=== PATIENT | male | born 1980 ===

== ENCOUNTER 2018-05-25 17:32 | Emergency (ER) | payer OTHER ==
[2018-05-25 17:41] VITALS: BMI 38.4
[2018-05-25] MEDS ORDERED: Albuterol-Ipratrop 3 mg / 0.5 (3 ml) UD IH STA (17:48)
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
[2018-05-25] MEDS ORDERED: Albuterol 0.083% Inhal Sol (2.5 mg/3 mL) UD INH STA (19:37)
[2018-05-25 19:44] VITALS: BP 115/88; PULSE 104; RESP 18; TEMP 99; O2SAT 100
--- NOTE | 2018-05-26 09:07 | RAD ---
Date of service: 05/25/2018 HISTORY: wheezing COMPARISON: Portable chest 06/24/2016. FINDINGS: LUNGS: No active pulmonary disease. Improved inspiratory volumes. PLEURA: No significant pleural effusion identified, no pneumothorax apparent. CARDIOVASCULAR: No aortic atherosclerotic calcification present. Normal cardiac size. No pulmonary vascular congestion. OSSEOUS STRUCTURES: No significant abnormalities. VISUALIZED UPPER ABDOMEN: Normal. OTHER FINDINGS: None. IMPRESSION: No interval acute cardiopulmonary disease appreciated.
== END 2018-05-25 19:50 | disposition home or self-care (01) ==
LOC: ED 17:32
DX: J40 Bronchitis, not specified as acute or chronic (principal)
CPT/HCPCS: 71045; 87804; 96374; 99282; J2930

== ENCOUNTER 2018-05-29 22:07 | Inpatient (IN) | payer OTHER ==
[2018-05-29] MEDS ORDERED: DiphenhydrAMINE 50 mg/ml Inj IVP STA (22:37)
[2018-05-29] MEDS: Albuterol-Ipratrop 3 mg / 0.5 (3 ml) UD IH SCH ×3 (22:40→23:17)
--- NOTE | 2018-05-29 22:41 | ED PDOC ---
Arrival/HPI - General Chief Complaint: Respiratory Distress Time Seen by Provider: 05/29/18 22:15 Historian: Patient - History of Present Illness Narrative History of Present Illness (Text): 05/29/18 22:38 37 y/o male, pmh including asthma, chronic smoker, hypox 88% Room air, been having coughing/wheezing/shortness of breath for the past 4-5 days with epigastric discomfort. Pt. stated that he has nasal congestion/cough/wheezi ng/sob/fatigue for the past 4 days with subjective, stated that he received zithromax/prednisone/albuterol with limited relief, no recent traveling, no night sweat, no rash, stated that he has epigastric pain as well which he had abd sonogram show fatty liver with no acute findings, no other medical or psychological complaints. Past Medical History - Provider Review Nursing Documentation Reviewed: Yes - Infectious Disease Hx of Infectious Diseases: None - Tetanus Immunization Tetanus Immunization: Up to Date - Cardiac Hx Cardiac Disorders: No - Pulmonary Hx Asthma: Yes - Neurological Hx Neurological Disorder: No - HEENT Hx HEENT Disorder: No - Renal Hx Renal Disorder: No - Endocrine/Metabolic Hx Endocrine Disorders: No - Hematological/Oncological Hx Blood Disorders: No - Integumentary Hx Dermatological Disorder: No - Musculoskeletal/Rheumatological Hx Musculoskeletal Disorders: No - Gastrointestinal Hx Gastrointestinal Disorders: No - Genitourinary/Gynecological Hx Genitourinary Disorders: No - Psychiatric Hx Depression: Yes Hx Substance Use: No - Past Surgical History Past Surgical History: No Previous - Surgical History Other/Comment: right rotator cuff. right 5th toe. - Anesthesia Hx Anesthesia: No Hx Anesthesia Reactions: No Hx Malignant Hyperthermia: No - Suicidal Assessment Feels Threatened In Home Enviroment: No Family/Social History - Physician Review Nursing Documentation Reviewed: Yes Family/Social History: Unknown Family HX Smoking Status: Current Some Days Smoker Hx Alcohol Use: Yes Hx Substance Use: No Substance used: coccaine & xanax Hx Substance Use Treatment: No Allergies/Home Meds Allergies/Adverse Reactions: Allergies shellfish derived Allergy (Mild, Verified 05/29/18 22:18) RASH Home Medications: Home Meds Medication Instructions Recorded Confirmed Albuterol Sulfate [Proair Hfa] 0.09 mg IH PRN PRN 10/24/17 05/29/18 Review of Systems - Review of Systems Constitutional: Fatigue, Fevers Eyes: absent: Vision Changes ENT: Rhinorrhea. absent: Hearing Changes Respiratory: SOB, Cough, Sputum, Wheezing Cardiovascular: absent: Chest Pain Gastrointestinal: absent: Abdominal Pain, Nausea, Vomiting Skin: absent: Rash, Pruritis Neurological: absent: Headache, Dizziness Psychiatric: absent: Anxiety, Depression, Suicidal Ideation Physical Exam Vital Signs Reviewed: Yes Vital Signs Temp Pulse Resp BP Pulse Ox 05/29/18 22:20 99.3 F 115 H 20 126/73 89 L Temperature: Afebrile Blood Pressure: Normal Pulse: Regular Respiratory Rate: Tachypneic Appearance: Positive for: Well-Appearing, Uncomfortable Pain Distress: None Mental Status: Positive for: Alert and Oriented X 3 - Systems Exam Head: Present: Atraumatic, Normocephalic Pupils: Present: PERRL Extroacular Muscles: Present: EOMI Conjunctiva: Present: Normal Mouth: Present: Moist Mucous Membranes Nose (External): Present: Atraumatic. No: Abrasion, Contusion, Laceration Nose (Internal): Present: Normal Inspection, No Active Bleeding, Rhinorrhea. No: Septal Deviation, Septal Hematoma, Epistaxis Neck: Present: Normal Range of Motion Respiratory/Chest: Present: Wheezes, Decreased Breath Sounds, Rales, Rhonchi, Tachypneic. No: Respiratory Distress, Accessory Muscle Use, Retracting, Tender to Palpation Cardiovascular: Present: Regular Rate and Rhythm, Normal S1, S2. No: Murmurs Abdomen: Present: Tenderness (epigastric), Normal Bowel Sounds. No: Distention, Peritoneal Signs, Rebound, Guarding Back: Present: Normal Inspection. No: CVA Tenderness, Midline Tenderness, Paraspinal Tenderness Upper Extremity: Present: Normal Inspection. No: Cyanosis, Edema Lower Extremity: Present: Normal Inspection. No: Edema Neurological: Present: GCS=15, CN II-XII Intact, Speech Normal, Motor Func Grossly Intact, Gait Normal, Memory Normal Skin: Present: Warm, Dry, Normal Color. No: Rashes Lymphatic: No: Cervical Adenopathy Psychiatric: Present: Alert, Oriented x 3, Normal Insight, Normal Concentration Medical Decision Making ED Course and Treatment: 05/29/18 22:44 -labs -CT -IV solumedrol/benadryl/pepcid/duoneb/toradol/codeine -Observe and reassess 05/29/18 23:21 -ABG: Ph 7.68, Co2 17, HCO3 20.1, Lactic acid 3.1 -Resiratory alkalosis with compensation, blood cultures ordered 05/29/18 23:23 -On campus monitor, he is tachy 120s with RR over 20 with lactic acid over 3.1 with suspicious of infection with subjective fever at home, rocephine and azithromycin ordered. 05/29/18 23:37 -Respiratory therapist sustained needle stick by the patient while drawing his blood, pt. agreed to have his blood draw for hepatitis panel and HIV. 05/29/18 23:46 -Pt. is still having wheezing/rhonchis/sob, CTA proceed and IV magnesium 2gm ordered. -Abd pain resolved with pepcid. 05/30/18 01:27 -EKG ordered. -CTA chest ordered and pending result. -Rapid flu is negative -ABG: Ph 7.68, Co2 17, HCO3 20.1, Lactic acid 3.1 -Labs are non-significant -Mg 1.7 -Lipase is negative -BNP show no acute findings -Trop show no acute findings as 1st set -TSH and T4 with normal limit -Dimer within normal limit, clinical suspicious is moderate to high for PE, CTA ordered -HIV is negative -UA ordered and pending results -UDS ordered and pending results -Pt. is hypoxic, tried outpatient treatment and fail, will need inpatient admis ele. 05/30/18 01:34 -I spoke to the medical sales representative and Dr. Champion, discussed about the case/labs/radiology results, agreed to admit this patient for monitoring. 05/30/18 04:11 -CTA: No demonstrated pulmonary embolism or arterial dissection. Nodular groundglass densities of the lower lobes, probably multifocal bronchopneumonia. Pending official [facility] radiology interpretation, already started the patient on rocephine/azithromycin 05/30/18 17:17 - Critical Care Critical Care Minutes: 45 minutes Critical Care Time: Unstable Narrative Critical Care (Text): 05/29/18 23:25 Tachycardia/tachypnea/lactic acid elevated, suspicious signs of infection, asthma require 3 duonebs and solumedrol, code sepsis. IV magnesium 2gm ordered. - RAD Interpretation Radiology Orders: 05/29/18 22:37 CHEST PORTABLE [RAD] Stat Chest xray: . EXAM: CR Chest, 1 View. CLINICAL HISTORY: COUGH COMPARISON: None provided. FINDINGS: LUNGS: There are diffusely increased interstitial lung markings consistent with bronchitis, acute versus chronic. PLEURAL SPACES: No pleural effusion or pneumothorax. MEDIASTINUM: The cardiomediastinal silhouette is within normal limits. BONES: No aggressive appearing osseous lesion seen. IMPRESSION: There are diffusely increased interstitial lung markings consistent with bronchitis, acute versus chronic. Electronically signed on May 29, 2018 11:38:20 PM EST by: Tommy Leyva M.D., MBA Certified By ABR & CBC[employer] Fellowship Trained MRI and CT Specialist CTA chest: CTA OF THE CHEST WITH IV CONTRAST CLINICAL HISTORY: Shortness of breath and tachycardia. TECHNIQUE: Axial and reformatted sagittal and coronal images of the chest obtained after bolus IV contrast administration. FINDINGS: Bilateral basilar groundglass densities of the lower lobes. Normal enhancement of the main pulmonary artery and right and left pulmonary arteries. Normal enhancement of the bilateral peripheral pulmonary arteries. There is no demonstrated pulmonary embolism. Normal thoracic aorta and visualized great vessels. There is no demonstrated aortic dissection. Mildly enlarged heart and normal pericardium. Mildly prominent hilar lymph nodes, probably reactive. Normal mediastinum. Normal remaining hilar regions. Normal visualized trachea and bronchi. The lungs are well expanded. Normal pleura. Normal chest wall structures. Normal osseous structures. Normal visualized upper abdomen. IMPRESSION: No demonstrated pulmonary embolism or arterial dissection. Nodular groundglass densities of the lower lobes, probably multifocal bronchopneumonia. Electronically signed on May 30, 2018 2:51:45 AM EST by: Janes Casey M.D., Certified by ABR, MSK, Neuroradiology Replenishment Merchandising Associate: Radiologist - Medication Orders Current Medication Orders: Albuterol/Ipratropium (Duoneb 3 Mg/0.5 Mg (3 Ml) Ud) 3 ml IH Q15M [facility] Stop: 05/29/18 23:16 - PA / MINING ANALYST / Resident Statement MD/DO has reviewed & agrees with the documentation as recorded. Disposition/Present on Arrival - Present on Arrival Any Indicators Present on Arrival: No History of DVT/PE: No History of Uncontrolled Diabetes: No Urinary Catheter: No History of Decub. Ulcer: No History Surgical Site Infection Following: None - Disposition Have Diagnosis and Disposition been Completed?: Yes Diagnosis: Hypoxic, Asthma, Bronchopneumonia, Failure of outpatient treatment Disposition: HOSPITALIZED Disposition Time: 23:25 Patient Plan: Admission, Observation, Telemetry Patient Problems: Current Active Problems Problem Status Onset Hypoxic Acute Asthma Acute Bronchopneumonia Acute Condition: GUARDED
[2018-05-29] MEDS: Sodium Chloride 0.9% 1,000 ML IV SCH (22:50)
[2018-05-29] MEDS ORDERED: Promethazine/Cod 6.25mg-10mg/5ml Syr UD PO STA (23:08)
[2018-05-29 23:14] LABS: ARTERIAL BLOOD GAS HCO3 20.1 mmol/L (21-28); ARTERIAL BLOOD GAS O2 SAT 99.1 % (95-98); ARTERIAL BLOOD GAS PCO2 17 mm/Hg (35-45); ARTERIAL BLOOD GAS TCO2 20.6 mmol.L (22-28)
[2018-05-29 23:17] LABS: ARTERIAL BLOOD GAS PH 7.68 (7.35-7.45)
[2018-05-29] MEDS ORDERED: Azithromycin 500MG/NS 250ml 500 MG/250 ML BAG IVPB STA (23:23)
[2018-05-29] MEDS ORDERED: cefTRIAXone 1 gm 1 GM/100 ML BAG IVPB STA (23:23)
[2018-05-29 23:26] LABS: BASO # 0.01 K/mm3 (0.0-2.0); BASO % 0.1 % (0.0-3.0); GRAN # 6.48 (1.4-6.5); GRAN % 68.4 % (50.0-68.0); HEMOGLOBIN 14.2 g/dL (14.0-18.0); LYMPH # 1.7 (1.2-3.4); LYMPH % 17.9 % (22.0-35.0); MEAN CORPUSCULAR HEMOGLOBIN 25.8 pg (25.0-35.0); MEAN PLATELET VOLUME 12.1 fl (7.0-11.0); MONO # 1.3 (0.1-0.6); MONO % 13.6 % (1.0-6.0); RBC 5.51 10^6/uL (3.5-6.1); RED CELL DISTRIBUTION WIDTH 13.6 % (11.5-14.5); WHITE BLOOD COUNT 9.5 10^3/uL (4.5-11.0)
[2018-05-29 23:30] LABS: ALB/GLOB RATIO 1.2 (1.1-1.8); ALBUMIN 4.2 g/dL (3.0-4.8); ALT/SGPT 31 U/L (7-56); AST/SGOT 34 U/L (17-59); BLOOD UREA NITROGEN 21 mg/dL (7-21); CALCIUM 8.9 mg/dL (8.4-10.5); GFR NON-AFRICAN AMERICAN > 60; LIPASE 144 U/L (23-300)
[2018-05-29 23:41] LABS: B-TYPE NATRIURETIC PEPTIDE 27.5 pg/mL (0-450); TROPONIN I < 0.01 ng/mL
[2018-05-29] MEDS ORDERED: Magnesium Sulfate 2 gm/50 ml 2 GM/50 ML BAG IVPB ONE (23:45)
[2018-05-29 23:46] LABS: FREE T4 0.98 ng/dL (0.78-2.19)
[2018-05-30 00:27] LABS: CK-MB 1.1 ng/mL (0.0-3.6)
[2018-05-30] MEDS ORDERED: Iohexol 350 MG/100 ML VIAL ONE (01:03)
[2018-05-30] MEDS ORDERED: Ipratropium 0.02% Inhal Soln (0.5 mg/2.5 ml) UD IH STA (03:04)
--- NOTE | 2018-05-30 03:28 | CP.PCM.HP ---
<Tom Sesay - Last Filed: 05/30/18 05:16> History of Present Illness - History of Present Illness History of Present Illness: Tmo Sesay DO PGY1. H&P for Hospitalist Service C.C: SOB 37 y/o male with PMH of asthma, chronic bronchitis presents to the ED with 5 days h/o progressive SOB, dry cough, fever, generalized body aches and diaphoresis. He was seen in [facility] ED 2 days after developing these symptoms and was given zithromax, albuterol, prednisone but failed to resolve his symptoms. Yesterday he vomited once that was NBNB and had bloated abdomen with one episode of watery non bloody diarrhea. He also c/o RUQ and epigastric abdominal pain, not related to food, exacerbated by cough, feels like pressure, not radiating, intermittent. He did not try any meds for abdominal pain. Patient admits that his younger daughter had flu like symptoms one week before he got sick. He denied recent travel or eating unusual food. Abdominal sonogram was done before that did not show any liver or gall bladder abnormalities. Patient denied CP, SOB, palpitations, leg swelling, headache, rashes, blood per rectum, urinary symptoms 12 points ROS reviewed with pertinent positives as above PMH: asthma PSH: right shoulder rotator cuf repair Meds: zithromax, albuterol ALL: shelfish Soc Hx: smokes 5 cigarettes per day for years, socially drinks alcohol, no drug use Fam Hx: mother and father have DM, HTN Present on Admission - Present on Admission Any Indicators Present on Admission: No Past Patient History - Infectious Disease Hx of Infectious Diseases: None - Tetanus Immunizations Tetanus Immunization: Up to Date - Past Social History Smoking Status: Current Some Days Smoker - CARDIAC Hx Cardiac Disorders: No - PULMONARY Hx Asthma: Yes - NEUROLOGICAL Hx Neurological Disorder: No - HEENT Hx HEENT Problems: No - RENAL Hx Chronic Kidney Disease: No - ENDOCRINE/METABOLIC Hx Endocrine Disorders: No - HEMATOLOGICAL/ONCOLOGICAL Hx Blood Disorders: No - INTEGUMENTARY Hx Dermatological Problems: No - MUSCULOSKELETAL/RHEUMATOLOGICAL Hx Musculoskeletal Disorders: No - GASTROINTESTINAL Hx Gastrointestinal Disorders: No - GENITOURINARY/GYNECOLOGICAL Hx Genitourinary Disorders: No - PSYCHIATRIC Hx Depression: Yes Hx Substance Use: No - SURGICAL HISTORY Other/Comment: right rotator cuff. right 5th toe. - ANESTHESIA Hx Anesthesia: No Hx Anesthesia Reactions: No Hx Malignant Hyperthermia: No Meds Allergies/Adverse Reactions: Allergies Allergy/AdvReac Type Severity Reaction Status Date / Time shellfish derived Allergy Mild RASH Verified 05/29/18 22:18 Physical Exam - Constitutional Appears: Well, No Acute Distress - Head Exam Head Exam: ATRAUMATIC, NORMAL INSPECTION, NORMOCEPHALIC - Eye Exam Eye Exam: EOMI, Normal appearance, PERRL Pupil Exam: NORMAL ACCOMODATION, PERRL - ENT Exam ENT Exam: Mucous Membranes Dry - Neck Exam Neck exam: Positive for: Normal Inspection - Respiratory Exam Respiratory Exam: Rhonchi, Wheezes (b/l through out. inspiratory/expiratory) - Cardiovascular Exam Cardiovascular Exam: Tachycardia, REGULAR RHYTHM, +S1, +S2. absent: Gallop, JVD, Rubs - GI/Abdominal Exam GI & Abdominal Exam: Distended, Normal Bowel Sounds, Soft. absent: Tenderness - Extremities Exam Extremities exam: Positive for: normal capillary refill, normal inspection, pedal pulses present - Back Exam Back exam: NORMAL INSPECTION - Neurological Exam Neurological exam: Alert, CN II-XII Intact, Normal Gait, Oriented x3, Reflexes Normal - Psychiatric Exam Psychiatric exam: Normal Affect, Normal Mood - Skin Skin Exam: Dry, Intact, Normal Color, Warm Results - Vital Signs Recent Vital Signs: Last Vital Signs Temp 99.3 F 05/29/18 22:20 Pulse 115 H 05/29/18 22:20 Resp 20 05/29/18 22:20 BP 126/73 05/29/18 22:20 Pulse Ox 89 L 05/29/18 22:20 - Labs Result Diagrams: 05/29/18 23:16 05/29/18 23:16 Labs: Laboratory Results - last 24 hr 05/29/18 05/29/18 05/29/18 23:09 23:16 23:16 WBC RBC Hgb Hct MCV MCH MCHC RDW Plt Count MPV Gran % Lymph % (Auto) Gilliam % (Auto) Eos % (Auto) Baso % (Auto) Gran # Lymph # (Auto) Gilliam # (Auto) Eos # (Auto) Baso # (Auto) D-Dimer, Quantitative < 200 pCO2 17 L* pO2 163.0 H HCO3 20.1 L ABG pH 7.68 H* ABG Total CO2 20.6 L ABG O2 Saturation 99.1 H ABG Base Excess 2.3 ABG Potassium 3.5 L Sodium 134.0 135 Chloride 101.0 98 Glucose 103 Lactate 3.1 H FiO2 32.0 Potassium 4.0 Carbon Dioxide 26 Anion Gap 14 BUN 21 Creatinine 1.0 Est GFR ( Amer) > 60 Est GFR (Non-Af Amer) > 60 Random Glucose 106 Calcium 8.9 Magnesium 1.8 Total Bilirubin 0.3 AST 34 ALT 31 Alkaline Phosphatase 85 Lactate Dehydrogenase 524 Total Creatine Kinase 443 H CK-MB (CK-2) 1.1 CK-MB (CK-2) % Cancelled Troponin I < 0.01 NT-Pro-B Natriuret Pep 27.5 Total Protein 7.6 Albumin 4.2 Globulin 3.4 Albumin/Globulin Ratio 1.2 Lipase 144 Free T4 TSH 3rd Generation Arterial Blood Potassium 3.5 L HIV-1 Ab Rapid Screen Influenza Typ A,B (EIA) 05/29/18 05/29/18 05/29/18 23:16 23:16 23:35 WBC 9.5 RBC 5.51 Hgb 14.2 Hct 43.0 MCV 78.0 L MCH 25.8 MCHC 33.0 RDW 13.6 Plt Count 200 MPV 12.1 H Gran % 68.4 H Lymph % (Auto) 17.9 L Gilliam % (Auto) 13.6 H Eos % (Auto) 0.0 L Baso % (Auto) 0.1 Gran # 6.48 Lymph # (Auto) 1.7 Gilliam # (Auto) 1.3 H Eos # (Auto) 0.0 Baso # (Auto) 0.01 D-Dimer, Quantitative pCO2 pO2 HCO3 ABG pH ABG Total CO2 ABG O2 Saturation ABG Base Excess ABG Potassium Sodium Chloride Glucose Lactate FiO2 Potassium Carbon Dioxide Anion Gap BUN Creatinine Est GFR ( Amer) Est GFR (Non-Af Amer) Random Glucose Calcium Magnesium Total Bilirubin AST ALT Alkaline Phosphatase Lactate Dehydrogenase Total Creatine Kinase CK-MB (CK-2) CK-MB (CK-2) % Troponin I NT-Pro-B Natriuret Pep Total Protein Albumin Globulin Albumin/Globulin Ratio Lipase Free T4 0.98 TSH 3rd Generation 2.83 Arterial Blood Potassium HIV-1 Ab Rapid Screen Non reactive Influenza Typ A,B (EIA) 05/30/18 00:07 WBC RBC Hgb Hct MCV MCH MCHC RDW Plt Count MPV Gran % Lymph % (Auto) Gilliam % (Auto) Eos % (Auto) Baso % (Auto) Gran # Lymph # (Auto) Gilliam # (Auto) Eos # (Auto) Baso # (Auto) D-Dimer, Quantitative pCO2 pO2 HCO3 ABG pH ABG Total CO2 ABG O2 Saturation ABG Base Excess ABG Potassium Sodium Chloride Glucose Lactate FiO2 Potassium Carbon Dioxide Anion Gap BUN Creatinine Est GFR ( Amer) Est GFR (Non-Af Amer) Random Glucose Calcium Magnesium Total Bilirubin AST ALT Alkaline Phosphatase Lactate Dehydrogenase Total Creatine Kinase CK-MB (CK-2) CK-MB (CK-2) % Troponin I NT-Pro-B Natriuret Pep Total Protein Albumin Globulin Albumin/Globulin Ratio Lipase Free T4 TSH 3rd Generation Arterial Blood Potassium HIV-1 Ab Rapid Screen Influenza Typ A,B (EIA) Negative for flu a/b Assessment & Plan - Assessment and Plan (Free Text) Assessment: 37 y/o male with PMH of asthma, chronic bronchitis presents to the ED with 5 days h/o progressive SOB, dry cough, fever, generalized body aches and diaphoresis who failed outpatient abx, brochodilator, steroid therapy. He was found in compansated respiratory alkalosis, met SIR criteria. He is admitted to telemetry for observation Plan: SOB: -likely due to bronchitis vs bronchogenic pneumonia -tried outpatient treatment and fail. has wheezing and rhonchi on exam -CXR: diffusely increased interstitial lung markings consistent with bronchitis, acute versus chronic -IV solumedrol/benadryl/pepcid/duoneb/toradol/codeine. given in ED -ABG: Ph 7.68, Co2 17, HCO3 20.1, Lactic acid 3.1 -Resiratory alkalosis with compensation -started Doxycline 100 mg q8h -Mg 1.7 IV magnesium 2gm give in ED -CTA chest: read pending -BNP normal -Trop show no acute findings as 1st set -TSH and T4 with normal limit -D dimer within normal limit -HIV, rapid flu a/b negative -blood and throat cultures ordered -O2 prn NC -started xopenex, atrovent, pulmicort -started solu-medrol 60mg q8h RUQ abdomial pain: -CT abd/pelvis -liver profile h/o drug abuse: -UA -UDS ordered Prophylaxis: -GI ppx: protnix -DVT ppx: SCD Dispo:Patient will be admitted for observation in telemetry Case reviewed and plan discussed with attending Dr Champion <Law Champion - Last Filed: 05/30/18 06:55> Results - Vital Signs Recent Vital Signs: Last Vital Signs Temp 98.5 F 05/30/18 06:00 Pulse 80 05/30/18 06:00 Resp 20 05/30/18 06:00 BP 128/81 05/30/18 06:00 Pulse Ox 97 05/30/18 06:00 - Labs Result Diagrams: 05/30/18 06:00 05/29/18 23:16 Labs: Laboratory Results - last 24 hr 05/29/18 05/29/18 05/29/18 23:09 23:16 23:16 WBC RBC Hgb Hct MCV MCH MCHC RDW Plt Count MPV Gran % Lymph % (Auto) Gilliam % (Auto) Eos % (Auto) Baso % (Auto) Gran # Lymph # (Auto) Gilliam # (Auto) Eos # (Auto) Baso # (Auto) D-Dimer, Quantitative < 200 pCO2 17 L* pO2 163.0 H HCO3 20.1 L ABG pH 7.68 H* ABG Total CO2 20.6 L ABG O2 Saturation 99.1 H ABG Base Excess 2.3 ABG Potassium 3.5 L VBG pH VBG pCO2 VBG HCO3 VBG Total CO2 VBG O2 Sat (Calc) VBG Base Excess VBG Potassium Sodium 134.0 135 Chloride 101.0 98 Glucose 103 Lactate 3.1 H FiO2 32.0 Potassium 4.0 Carbon Dioxide 26 Anion Gap 14 BUN 21 Creatinine 1.0 Est GFR ( Amer) > 60 Est GFR (Non-Af Amer) > 60 Random Glucose 106 Calcium 8.9 Magnesium 1.8 Total Bilirubin 0.3 AST 34 ALT 31 Alkaline Phosphatase 85 Lactate Dehydrogenase 524 Total Creatine Kinase 443 H CK-MB (CK-2) 1.1 CK-MB (CK-2) % Cancelled Troponin I < 0.01 NT-Pro-B Natriuret Pep 27.5 Total Protein 7.6 Albumin 4.2 Globulin 3.4 Albumin/Globulin Ratio 1.2 Lipase 144 Free T4 TSH 3rd Generation Arterial Blood Potassium 3.5 L Venous Blood Potassium HIV-1 Ab Rapid Screen Influenza Typ A,B (EIA) 05/29/18 05/29/18 05/29/18 23:16 23:16 23:35 WBC 9.5 RBC 5.51 Hgb 14.2 Hct 43.0 MCV 78.0 L MCH 25.8 MCHC 33.0 RDW 13.6 Plt Count 200 MPV 12.1 H Gran % 68.4 H Lymph % (Auto) 17.9 L Gilliam % (Auto) 13.6 H Eos % (Auto) 0.0 L Baso % (Auto) 0.1 Gran # 6.48 Lymph # (Auto) 1.7 Gilliam # (Auto) 1.3 H Eos # (Auto) 0.0 Baso # (Auto) 0.01 D-Dimer, Quantitative pCO2 pO2 HCO3 ABG pH ABG Total CO2 ABG O2 Saturation ABG Base Excess ABG Potassium VBG pH VBG pCO2 VBG HCO3 VBG Total CO2 VBG O2 Sat (Calc) VBG Base Excess VBG Potassium Sodium Chloride Glucose Lactate FiO2 Potassium Carbon Dioxide Anion Gap BUN Creatinine Est GFR ( Amer) Est GFR (Non-Af Amer) Random Glucose Calcium Magnesium Total Bilirubin AST ALT Alkaline Phosphatase Lactate Dehydrogenase Total Creatine Kinase CK-MB (CK-2) CK-MB (CK-2) % Troponin I NT-Pro-B Natriuret Pep Total Protein Albumin Globulin Albumin/Globulin Ratio Lipase Free T4 0.98 TSH 3rd Generation 2.83 Arterial Blood Potassium Venous Blood Potassium HIV-1 Ab Rapid Screen Non reactive Influenza Typ A,B (EIA) 05/30/18 05/30/18 05/30/18 00:07 04:10 06:00 WBC 6.8 D RBC 5.14 Hgb 13.1 L Hct 40.6 L MCV 79.0 L MCH 25.5 MCHC 32.3 RDW 14.0 Plt Count 177 MPV 11.6 H Gran % 86.0 H Lymph % (Auto) 9.2 L Gilliam % (Auto) 4.7 Eos % (Auto) 0.0 L Baso % (Auto) 0.1 Gran # 5.80 Lymph # (Auto) 0.6 L Gilliam # (Auto) 0.3 Eos # (Auto) 0.0 Baso # (Auto) 0.01 D-Dimer, Quantitative pCO2 pO2 235 H HCO3 ABG pH ABG Total CO2 ABG O2 Saturation ABG Base Excess ABG Potassium VBG pH 7.39 VBG pCO2 39.0 L VBG HCO3 23.6 VBG Total CO2 24.8 VBG O2 Sat (Calc) 100.6 H VBG Base Excess -1.2 L VBG Potassium 4.3 Sodium 134.0 Chloride 100.0 Glucose 155 H Lactate 2.9 H FiO2 21.0 Potassium Carbon Dioxide Anion Gap BUN Creatinine Est GFR ( Amer) Est GFR (Non-Af Amer) Random Glucose Calcium Magnesium Total Bilirubin AST ALT Alkaline Phosphatase Lactate Dehydrogenase Total Creatine Kinase CK-MB (CK-2) CK-MB (CK-2) % Troponin I NT-Pro-B Natriuret Pep Total Protein Albumin Globulin Albumin/Globulin Ratio Lipase Free T4 TSH 3rd Generation Arterial Blood Potassium Venous Blood Potassium 4.3 HIV-1 Ab Rapid Screen Influenza Typ A,B (EIA) Negative for flu a/b Attending/Attestation - Attestation I have personally seen and examined this patient.: Yes I have fully participated in the care of the patient.: Yes I have reviewed all pertinent clinical information: Yes
[2018-05-30 04:46] LABS: VENOUS BLOOD GAS BASE EXCESS -1.2 mmol/L (0.0-2.0); VENOUS BLOOD GAS PO2 235 mm/Hg (30-55); VENOUS BLOOD PH 7.39 (7.32-7.43)
[2018-05-30 05:48] VITALS: BMI 43.7
[2018-05-30] MEDS: Sodium Chloride 0.9% 1,000 ML IV SCH ×6 (06:07→23:15)
[2018-05-30] MEDS: Pantoprazole 40 mg EC Tab PO SCH (06:08)
[2018-05-30 06:37] LABS: BASO # 0.01 K/mm3 (0.0-2.0); BASO % 0.1 % (0.0-3.0); GRAN # 5.8 (1.4-6.5); HEMOGLOBIN 13.1 g/dL (14.0-18.0); LYMPH # 0.6 (1.2-3.4); LYMPH % 9.2 % (22.0-35.0); MEAN CORPUSCULAR HEMOGLOBIN 25.5 pg (25.0-35.0); MEAN CORPUSCULAR HGB CONC 32.3 g/dl (31.0-37.0); MEAN PLATELET VOLUME 11.6 fl (7.0-11.0); MONO # 0.3 (0.1-0.6); MONO % 4.7 % (1.0-6.0); RBC 5.14 10^6/uL (3.5-6.1); WHITE BLOOD COUNT 6.8 10^3/uL (4.5-11.0)
[2018-05-30 07:07] LABS: LDL CHOLESTEROL 98 mg/dL (0-129)
[2018-05-30 07:30] LABS: ALB/GLOB RATIO 1.2 (1.1-1.8); ALBUMIN 3.9 g/dL (3.0-4.8); ALT/SGPT 26 U/L (7-56); AST/SGOT 33 U/L (17-59); BILIRUBIN,DIRECT 0.2 mg/dL (0.0-0.4); CALCIUM 8.4 mg/dL (8.4-10.5); GFR NON-AFRICAN AMERICAN > 60; HDL CHOLESTEROL 36 mg/dL (29-60)
[2018-05-30 07:44] LABS: BLOOD UREA NITROGEN 19 mg/dL (7-21)
[2018-05-30] MEDS: Budesonide 0.5 mg/2 ml Inhal Susp UD IH SCH ×2 (07:44→20:00)
[2018-05-30] MEDS: Arformoterol 15 mcg/2 ml Inh Sol IH SCH ×2 (07:44→20:00)
[2018-05-30 08:26] LABS: VENOUS BLOOD GAS BASE EXCESS -0.4 mmol/L (0.0-2.0); VENOUS BLOOD GAS PO2 62 mm/Hg (30-55); VENOUS BLOOD PH 7.38 (7.32-7.43)
--- NOTE | 2018-05-30 09:11 | RAD ---
Date of service: 05/29/2018 HISTORY: medical clearance COMPARISON: 05/25/2018 FINDINGS: LUNGS: No active pulmonary disease. PLEURA: No significant pleural effusion identified, no pneumothorax apparent. CARDIOVASCULAR: No aortic atherosclerotic calcification present. Normal cardiac size. No pulmonary vascular congestion. OSSEOUS STRUCTURES: No significant abnormalities. VISUALIZED UPPER ABDOMEN: Normal. OTHER FINDINGS: None. IMPRESSION: No active disease.
[2018-05-30] MEDS: cefTRIAXone 1 gm 1 GM/100 ML BAG IVPB SCH (09:17)
--- NOTE | 2018-05-30 09:30 | CARD ---
APPROVED REPORT Date of service: 05/30/2018 EKG Measurement Heart [id number] <Conclusion> Normal sinus rhythm Normal ECG No change
[2018-05-30 09:39] LABS: ARTERIAL BLOOD GAS HCO3 23.1 mmol/L (21-28); ARTERIAL BLOOD GAS HEMOGLOBIN 12.8 g/dL (11.7-17.4); ARTERIAL BLOOD GAS O2 CAPACITY 17.6 mL/dl (16-24); ARTERIAL BLOOD GAS O2 CONTENT 17.4 ML/dl (15-23); ARTERIAL BLOOD GAS O2 SAT 98.7 % (95-98); ARTERIAL BLOOD GAS PCO2 40 mm/Hg (35-45); ARTERIAL BLOOD GAS PH 7.37 (7.35-7.45); ARTERIAL BLOOD GAS TCO2 24.3 mmol.L (22-28)
--- NOTE | 2018-05-30 11:21 | CT ---
Date of service: 05/30/2018 PROCEDURE: CT Chest with contrast (Pulmonary Angiogram) HISTORY: sob/tachycardia COMPARISON: None available. TECHNIQUE: Axial computed tomography images were obtained of the chest in the pulmonary arterial phase of enhancement. Coronal and sagittal reformatted images were created and reviewed. Intravenous contrast dose: 100 cc of Omni 350 Radiation dose: Total exam DLP = 565.69 mGy-cm. This CT exam was performed using one or more of the following dose reduction techniques: Automated exposure control, adjustment of the mA and/or kV according to patient size, and/or use of iterative reconstruction technique. FINDINGS: PULMONARY ARTERIES: Unremarkable. No pulmonary embolism. AORTA: No acute findings. No thoracic aortic aneurysm. No aortic atherosclerotic calcification or mural plaque present. LUNGS: Ground-glass nodular densities are seen in both lung bases most consistent with inflammation or pneumonia. PLEURAL SPACES: Unremarkable. No effusion or pneumothorax. HEART: Unremarkable. No cardiomegaly. No significant pericardial effusion. LYMPH NODES: No lymphadenopathy. BONES, CHEST WALL: Unremarkable. No fracture or destructive lesion OTHER FINDINGS: The report concurs with the preliminary [facility] report IMPRESSION: No evidence of pulmonary embolus. Nodular ground-glass densities of both lung bases most consistent with multi focal pneumonia
[2018-05-30 11:49] LABS: URINE BILIRUBIN NEGATIVE (NEGATIVE); URINE BLOOD NEGATIVE (NEGATIVE); URINE GLUCOSE (UA) 100 mg/dL (NEGATIVE); URINE LEUKOCYTE ESTERASE NEGATIVE Leu/uL (NEGATIVE); URINE PROTEIN NEGATIVE mg/dL (<30 mg/dL); URINE UROBILINOGEN 0.2 E.U./dL (<1 E.U./dL)
[2018-05-30 11:55] LABS: URINE APPEARANCE CLEAR (CLEAR); URINE COLOR YELLOW (YELLOW)
[2018-05-30 12:12] LABS: BARBITURATES, UR NEGATIVE (NEGATIVE); BENZODIAZEPINES, UR NEGATIVE (NEGATIVE); OPIATES, UR POSITIVE (NEGATIVE); PHENCYCLIDINE, UR NEGATIVE (NEGATIVE)
[2018-05-30 12:47] LABS: HEPATITIS B SURFACE AG Negative (NEGATIVE)
[2018-05-30 12:53] LABS: HEPATITIS A IGM NEGATIVE (NEGATIVE); HEPATITIS B CORE AB NEGATIVE (NEGATIVE)
[2018-05-30 13:04] LABS: HEPATITIS C ANTIBODY NEGATIVE (NEGATIVE)
[2018-05-30] MEDS: Levalbuterol 0.63 MG/3 ML Inhal Soln UD IH PRN (13:13)
[2018-05-30] MEDS: MethylPREDNISolone 40 mg Vial IVP SCH ×2 (14:47→21:02)
[2018-05-30] MEDS: guaiFENesin-Codeine 100-10mg/5ml Syrup (5 ml) UD PO PRN (21:02)
[2018-05-30] MEDS ORDERED: Simethicone 80 mg Chewtab PO PRN (21:35)
[2018-05-31] MEDS: guaiFENesin-Codeine 100-10mg/5ml Syrup (5 ml) UD PO PRN ×5 (04:28→22:09)
[2018-05-31] MEDS: MethylPREDNISolone 40 mg Vial IVP SCH ×3 (05:29→22:09)
[2018-05-31] MEDS: Pantoprazole 40 mg EC Tab PO SCH (05:29)
--- NOTE | 2018-05-31 07:05 | CP.PCM.PN ---
<Fabi Duke L - Last Filed: 05/31/18 13:44> Subjective - Date & Time of Evaluation Date of Evaluation: 05/31/18 Time of Evaluation: 07:04 - Subjective Subjective: Resident Progress Note for Hospitalist Service Patient examined at bedside. Patient had some abdominal pain overnight. He states he also has been constipated. His cough and shortness of breath is unchanged from yesterday. Denies fevers, chills, headache, dizziness, chest pain, dysuria. Objective - Vital Signs/Intake and Output Vital Signs (last 24 hours): Temp Pulse Resp BP Pulse Ox 97.5 F L 87 20 118/70 97 05/31/18 06:00 05/31/18 06:00 05/31/18 06:00 05/31/18 06:00 05/31/18 06:00 Intake and Output: 05/31/18 05/31/18 06:59 18:59 Intake Total 1440 Balance 1440 - Medications Medications: Current Medications Arformoterol Tartrate (Brovana) 15 mcg IH [id number] WENDY Last Admin: 05/30/18 20:00 Dose: 15 mcg Budesonide (Pulmicort Respules) 0.5 mg IH [id number] WENDY Last Admin: 05/30/18 20:00 Dose: 0.5 mg Guaifenesin/Codeine Phosphate (Robitussin W/Codeine) 5 ml PO Q4H PRN PRN Reason: Cough and congestion Last Admin: 05/31/18 04:28 Dose: 5 ml Doxycycline Hyclate 100 mg/ (Sodium Chloride) 100 mls @ 100 mls/hr IVPB Q12 [facility]; Protocol Last Admin: 05/30/18 21:46 Dose: 100 mls/hr Sodium Chloride (Sodium Chloride 0.9%) 1,000 mls @ 100 mls/hr IV .Q10H WENDY Last Admin: 05/30/18 23:15 Dose: Not Given Ceftriaxone Sodium (Rocephin 1 Gram Ivpb) 1 gm in 100 mls @ 100 mls/hr IVPB DAILY [facility]; Protocol Last Admin: 05/30/18 09:17 Dose: 100 mls/hr Levalbuterol HCl (Xopenex) 0.63 mg IH [id number] PRN PRN Reason: Shortness of Breath Last Admin: 05/30/18 13:13 Dose: 0.63 mg Methylprednisolone (Solu-Medrol) 40 mg IVP Q8 [facility] Last Admin: 05/31/18 05:29 Dose: 40 mg Pantoprazole Sodium (Protonix Ec Tab) 40 mg PO 0600 [facility] Last Admin: 05/31/18 05:29 Dose: 40 mg Simethicone (Mylicon Chew Tab) 80 mg PO PCHS PRN PRN Reason: GI distress Last Admin: 05/30/18 21:46 Dose: 80 mg - Labs Labs: 05/30/18 06:00 05/30/18 06:00 - Additional Findings Additional findings: - Constitutional Appears: Well, No Acute Distress - Head Exam Head Exam: ATRAUMATIC, NORMAL INSPECTION, NORMOCEPHALIC - Eye Exam Eye Exam: EOMI, Normal appearance, PERRL - ENT Exam ENT Exam: Mucous Membranes Dry - Neck Exam Neck exam: Positive for: Normal Inspection - Respiratory Exam Respiratory Exam: Rhonchi, Wheezes (b/l through out. inspiratory/expiratory). absent: Respiratory Distress - Cardiovascular Exam Cardiovascular Exam: Tachycardia, REGULAR RHYTHM, +S1, +S2. absent: Gallop, JVD, Rubs - GI/Abdominal Exam GI & Abdominal Exam: Distended, Normal Bowel Sounds, Soft. absent: Tenderness - Extremities Exam Extremities exam: Positive for: normal capillary refill, normal inspection, pedal pulses present - Back Exam Back exam: NORMAL INSPECTION - Neurological Exam Neurological exam: Alert, CN II-XII Intact, Normal Gait, Oriented x3, Reflexes Normal - Psychiatric Exam Psychiatric exam: Normal Affect, Normal Mood - Skin Skin Exam: Dry, Intact, Normal Color, Warm Assessment and Plan - Assessment and Plan (Free Text) Assessment: 37 y/o male with PMH of asthma, chronic bronchitis presents to the ED with 5 days h/o progressive SOB, dry cough, fever, generalized body aches and diaphoresis who failed outpatient abx, brochodilator, steroid therapy, admitted for management of multifocal pneumonia and exacerbation of asthma. Plan: SOB - multifocal pneumonia failing outpatient treatment vs. asthma exacerbation - CXR: diffusely increased interstitial lung markings consistent with bronchitis, acute versus chronic - CT chest shows no PE, nodular ground glass densities of both lung bases consistent with multifocal pneumonia - BCx neg x2, flu neg - O2 NC PRN - Doxycline 100 mg IV Q12H, Rocephin 1 gm IV daily - Brovana, pulmicort, Xopenex, robitussin - Solu-medrol 40mg Q8H Abdominal pain - likely due to constipation - Abd U/S from 05/28 shows echogenic liver, possible hepatic parenchymal disease or fatty infiltration - Colace, Miralax PRN - Hepatitis panel/HIV negative PPX -GI ppx: protnix -DVT ppx: SCD Case reviewed and plan discussed with attending Dr. Maverick Duke PGY-1 <Kolby Temple - Last Filed: 05/31/18 16:28> Objective - Vital Signs/Intake and Output Vital Signs (last 24 hours): Temp Pulse Resp BP Pulse Ox 97.7 F 75 22 119/87 95 05/31/18 14:09 05/31/18 14:09 05/31/18 14:09 05/31/18 14:09 05/31/18 13:38 Intake and Output: 05/31/18 05/31/18 06:59 18:59 Intake Total 1440 Balance 1440 - Medications Medications: Current Medications Arformoterol Tartrate (Brovana) 15 mcg IH [id number] [id number] Last Admin: 05/31/18 07:43 Dose: 15 mcg Budesonide (Pulmicort Respules) 0.5 mg IH [id number] WENDY Last Admin: 05/31/18 07:43 Dose: 0.5 mg Docusate Sodium (Colace) 100 mg PO BID PRN PRN Reason: Constipation Guaifenesin/Codeine Phosphate (Robitussin W/Codeine) 5 ml PO Q4H PRN PRN Reason: Cough and congestion Last Admin: 05/31/18 13:13 Dose: 5 ml Doxycycline Hyclate 100 mg/ (Sodium Chloride) 100 mls @ 100 mls/hr IVPB Q12 [facility]; Protocol Last Admin: 05/31/18 11:07 Dose: 100 mls/hr Ceftriaxone Sodium (Rocephin 1 Gram Ivpb) 1 gm in 100 mls @ 100 mls/hr IVPB DAILY [facility]; Protocol Last Admin: 05/31/18 09:19 Dose: 100 mls/hr Levalbuterol HCl (Xopenex) 0.63 mg IH [id number] PRN PRN Reason: Shortness of Breath Last Admin: 05/30/18 13:13 Dose: 0.63 mg Lidocaine (Lidoderm) 1 ea TD DAILY [facility] Last Admin: 05/31/18 10:02 Dose: Not Given Methylprednisolone (Solu-Medrol) 40 mg IVP Q8 [facility] Last Admin: 05/31/18 13:12 Dose: 40 mg Pantoprazole Sodium (Protonix Ec Tab) 40 mg PO 0600 [facility] Last Admin: 05/31/18 05:29 Dose: 40 mg Polyethylene Glycol (Miralax) 17 gm PO DAILY PRN PRN Reason: Constipation Simethicone (Mylicon Chew Tab) 80 mg PO HS PRN PRN Reason: GI distress Last Admin: 05/30/18 21:46 Dose: 80 mg - Labs Labs: 05/31/18 07:00 05/31/18 07:00 Attending/Attestation - Attestation I have personally seen and examined this patient.: Yes I have fully participated in the care of the patient.: Yes I have reviewed all pertinent clinical information, including history, physical exam and plan: Yes Notes (Text): 05/31/18 16:21 37 year old male with past medical history of asthma and recent bronchitis prescribed antibiotics who presented with complaint of fever, cough and shortness of breath. He was found to have multifocal pneumonia on CT chest and started on iv antibiotics. He is also on iv steroids for asthma exacerbation. Initial ABG showed respiratory alkalosis which has improved. Today he still complains of dyspnea on exertion with cough. +Wheezing on examination. Will continue with same dose steroids, duonebs and antibiotics. He is also on xopenex, pulmicort and brovana. He was counselled on smoking cessation. Colace and miralax added for constipation. Kolby Temple MD Hospitalist.
[2018-05-31] MEDS: Arformoterol 15 mcg/2 ml Inh Sol IH SCH ×2 (07:43→19:47)
[2018-05-31] MEDS: Budesonide 0.5 mg/2 ml Inhal Susp UD IH SCH ×2 (07:43→19:47)
[2018-05-31 09:03] LABS: BASO # 0.01 K/mm3 (0.0-2.0); BASO % 0.1 % (0.0-3.0); GRAN # 9.63 (1.4-6.5); GRAN % 81.2 % (50.0-68.0); LYMPH # 1.8 (1.2-3.4); LYMPH % 15.3 % (22.0-35.0); MEAN CELL VOLUME 79.3 fl (80.0-105.0); MEAN CORPUSCULAR HEMOGLOBIN 25.3 pg (25.0-35.0); MEAN CORPUSCULAR HGB CONC 31.9 g/dl (31.0-37.0); MEAN PLATELET VOLUME 12.4 fl (7.0-11.0); MONO # 0.4 (0.1-0.6); MONO % 3.4 % (1.0-6.0); RBC 5.13 10^6/uL (3.5-6.1); WHITE BLOOD COUNT 11.9 10^3/uL (4.5-11.0)
[2018-05-31 09:13] LABS: ALB/GLOB RATIO 1.2 (1.1-1.8); ALBUMIN 3.7 g/dL (3.0-4.8); ALT/SGPT 26 U/L (7-56); AST/SGOT 39 U/L (17-59); BLOOD UREA NITROGEN 18 mg/dL (7-21); CALCIUM 8.8 mg/dL (8.4-10.5); GFR NON-AFRICAN AMERICAN > 60
[2018-05-31] MEDS: Sodium Chloride 0.9% 1,000 ML IV SCH (09:19)
[2018-05-31] MEDS: cefTRIAXone 1 gm 1 GM/100 ML BAG IVPB SCH (09:19)
[2018-05-31] MEDS ORDERED: POLYETHYLENE GLYCOL 3350 17 GM/Dose PACKET PO SCH (10:00)
[2018-05-31] MEDS: Lidocaine 5% Patch TD SCH (10:02)
[2018-05-31] MEDS ORDERED: POLYETHYLENE GLYCOL 3350 17 GM/Dose PACKET PO PRN (13:14)
[2018-05-31] MEDS: Levalbuterol 0.63 MG/3 ML Inhal Soln UD IH PRN (19:53)
[2018-05-31] MEDS ORDERED: POLYETHYLENE GLYCOL 3350 17 GM/Dose PACKET PO STA (21:31)
[2018-06-01] MEDS: MethylPREDNISolone 40 mg Vial IVP SCH ×4 (05:32→18:46)
[2018-06-01] MEDS: Pantoprazole 40 mg EC Tab PO SCH (05:32)
[2018-06-01] MEDS: guaiFENesin-Codeine 100-10mg/5ml Syrup (5 ml) UD PO PRN ×4 (05:42→23:09)
[2018-06-01 06:15] LABS: BASO # 0.01 K/mm3 (0.0-2.0); BASO % 0.1 % (0.0-3.0); GRAN # 8.02 (1.4-6.5); GRAN % 80.6 % (50.0-68.0); HEMOGLOBIN 13.2 g/dL (14.0-18.0); LYMPH # 1.1 (1.2-3.4); LYMPH % 10.5 % (22.0-35.0); MEAN CELL VOLUME 79.9 fl (80.0-105.0); MEAN CORPUSCULAR HEMOGLOBIN 25.3 pg (25.0-35.0); MEAN CORPUSCULAR HGB CONC 31.7 g/dl (31.0-37.0); MEAN PLATELET VOLUME 11.7 fl (7.0-11.0); MONO # 0.9 (0.1-0.6); MONO % 8.8 % (1.0-6.0); RBC 5.22 10^6/uL (3.5-6.1); RED CELL DISTRIBUTION WIDTH 13.8 % (11.5-14.5)
[2018-06-01 06:27] LABS: ALB/GLOB RATIO 1.3 (1.1-1.8); ALBUMIN 3.9 g/dL (3.0-4.8); ALT/SGPT 35 U/L (7-56); AST/SGOT 30 U/L (17-59); BLOOD UREA NITROGEN 20 mg/dL (7-21); CALCIUM 8.9 mg/dL (8.4-10.5); GFR NON-AFRICAN AMERICAN > 60
[2018-06-01] MEDS: Arformoterol 15 mcg/2 ml Inh Sol IH SCH ×2 (07:26→19:28)
[2018-06-01] MEDS: Budesonide 0.5 mg/2 ml Inhal Susp UD IH SCH ×2 (07:26→19:28)
[2018-06-01] MEDS ORDERED: MethylPREDNISolone 40 mg Vial IVP SCH (08:55)
[2018-06-01] MEDS ORDERED: Bisacodyl 5mg EC Tab PO PRN (08:56)
[2018-06-01] MEDS: POLYETHYLENE GLYCOL 3350 17 GM/Dose PACKET PO SCH ×2 (09:31→17:37)
[2018-06-01] MEDS: Lidocaine 5% Patch TD SCH (09:31)
[2018-06-01] MEDS: cefTRIAXone 1 gm 1 GM/100 ML BAG IVPB SCH (09:36)
--- NOTE | 2018-06-01 10:12 | CP.PCM.PN ---
<Fabi Duke L - Last Filed: 06/01/18 14:19> Subjective - Date & Time of Evaluation Date of Evaluation: 06/01/18 Time of Evaluation: 10:12 - Subjective Subjective: Resident Progress Note for Hospitalist Service Patient examined at bedside. No acute events overnight. Patient states that he is feeling better today, with improvement in his shortness of breath. Still admits to constipation and abdominal discomfort. Denies headache, dizziness, fevers, chills, chest pain. Objective - Vital Signs/Intake and Output Vital Signs (last 24 hours): Temp Pulse Resp BP Pulse Ox 97.8 F 87 18 130/79 97 06/01/18 06:00 06/01/18 06:00 06/01/18 00:01 06/01/18 06:00 05/31/18 18:00 Intake and Output: 06/01/18 06/01/18 06:59 18:59 Intake Total 1540 Balance 1540 - Medications Medications: Current Medications Arformoterol Tartrate (Brovana) 15 mcg [facility] [id number] [facility] Last Admin: 06/01/18 07:26 Dose: 15 mcg Bisacodyl (Dulcolax) 5 mg PO BID PRN PRN Reason: Constipation Last Admin: 06/01/18 09:35 Dose: 5 mg Budesonide (Pulmicort Respules) 0.5 mg IH [id number] [facility] Last Admin: 06/01/18 07:26 Dose: 0.5 mg Docusate Sodium (Colace) 100 mg PO BID PRN PRN Reason: Constipation Last Admin: 05/31/18 22:09 Dose: 100 mg Guaifenesin/Codeine Phosphate (Robitussin W/Codeine) 5 ml PO Q4H PRN PRN Reason: Cough and congestion Last Admin: 06/01/18 09:31 Dose: 5 ml Doxycycline Hyclate 100 mg/ (Sodium Chloride) 100 mls @ 100 mls/hr IVPB Q12 [facility]; Protocol Last Admin: 05/31/18 22:07 Dose: 100 mls/hr Ceftriaxone Sodium (Rocephin 1 Gram Ivpb) 1 gm in 100 mls @ 100 mls/hr IVPB DAILY [facility]; Protocol Last Admin: 06/01/18 09:36 Dose: 100 mls/hr Ketorolac Tromethamine (Toradol) 15 mg IVP Q6H PRN PRN Reason: Pain, severe (8-10) Last Admin: 06/01/18 05:42 Dose: 15 mg Levalbuterol HCl (Xopenex) 0.63 mg IH [id number] PRN PRN Reason: Shortness of Breath Last Admin: 05/31/18 19:53 Dose: 0.63 mg Lidocaine (Lidoderm) 1 ea TD DAILY [facility] Last Admin: 06/01/18 09:31 Dose: 1 ea Methylprednisolone (Solu-Medrol) 40 mg IVP BID [facility] Last Admin: 06/01/18 09:37 Dose: 40 mg Pantoprazole Sodium (Protonix Ec Tab) 40 mg PO 0600 [facility] Last Admin: 06/01/18 05:32 Dose: 40 mg Polyethylene Glycol (Miralax) 17 gm PO BID [facility] Last Admin: 06/01/18 09:31 Dose: 17 gm Simethicone (Mylicon Chew Tab) 80 mg PO PCHS PRN PRN Reason: GI distress Last Admin: 05/30/18 21:46 Dose: 80 mg - Labs Labs: 06/01/18 05:30 06/01/18 05:30 - Additional Findings Additional findings: - Constitutional Appears: Well, No Acute Distress - Head Exam Head Exam: ATRAUMATIC, NORMAL INSPECTION, NORMOCEPHALIC - Eye Exam Eye Exam: EOMI, Normal appearance - ENT Exam ENT Exam: Mucous Membranes Dry - Neck Exam Neck exam: Positive for: Normal Inspection - Respiratory Exam Respiratory Exam: Rhonchi, Wheezes (improved). absent: Respiratory Distress - Cardiovascular Exam Cardiovascular Exam: Tachycardia, REGULAR RHYTHM, +S1, +S2. absent: Gallop, JVD , Rubs - GI/Abdominal Exam GI & Abdominal Exam: Distended, Normal Bowel Sounds, Soft. absent: Tenderness - Extremities Exam Extremities exam: Positive for: normal capillary refill, normal inspection, pedal pulses present - Back Exam Back exam: NORMAL INSPECTION - Neurological Exam Neurological exam: Alert, CN II-XII Intact, Normal Gait, Oriented x3, Reflexes Normal - Psychiatric Exam Psychiatric exam: Normal Affect, Normal Mood - Skin Skin Exam: Dry, Intact, Normal Color, Warm Assessment and Plan - Assessment and Plan (Free Text) Assessment: 37 y/o male with PMH of asthma, chronic bronchitis presents to the ED with 5 days h/o progressive SOB, dry cough, fever, generalized body aches and d iaphoresis who failed outpatient abx, brochodilator, steroid therapy, admitted for management of multifocal pneumonia and exacerbation of asthma. Plan: Shortness of breath - multifocal pneumonia failing outpatient treatment vs. asthma exacerbation - CXR: diffusely increased interstitial lung markings consistent with bronchitis, acute versus chronic - CT chest shows no PE, nodular ground glass densities of both lung bases consistent with multifocal pneumonia - BCx neg x2, flu neg - O2 NC PRN - Doxycline 100 mg IV Q12H, Rocephin 1 gm IV daily - Brovana, pulmicort, Xopenex, robitussin - Solu-medrol taper Abdominal pain - likely due to constipation - Abd U/S from 05/28 shows echogenic liver, possible hepatic parenchymal disease or fatty infiltration - Colace, Miralax PRN, Dulcolax - Hepatitis panel/HIV negative PPX -GI ppx: protonix -DVT ppx: SCD Case reviewed and plan discussed with attending Dr. Maverick Duke PGY-1 <Kolby Temple - Last Filed: 06/01/18 15:38> Objective - Vital Signs/Intake and Output Vital Signs (last 24 hours): Temp Pulse Resp BP Pulse Ox 97.8 F 75 18 122/83 97 06/01/18 12:00 06/01/18 12:00 06/01/18 12:00 06/01/18 12:00 05/31/18 18:00 Intake and Output: 06/01/18 06/01/18 06:59 18:59 Intake Total 1540 Balance 1540 - Medications Medications: Current Medications Arformoterol Tartrate (Brovana) 15 mcg [facility] [id number] [facility] Last Admin: 06/01/18 07:26 Dose: 15 mcg Bisacodyl (Dulcolax) 5 mg PO BID PRN PRN Reason: Constipation Last Admin: 06/01/18 09:35 Dose: 5 mg Budesonide (Pulmicort Respules) 0.5 mg IH [id number] [facility] Last Admin: 06/01/18 07:26 Dose: 0.5 mg Docusate Sodium (Colace) 100 mg PO BID PRN PRN Reason: Constipation Last Admin: 05/31/18 22:09 Dose: 100 mg Guaifenesin/Codeine Phosphate (Robitussin W/Codeine) 5 ml PO Q4H PRN PRN Reason: Cough and congestion Last Admin: 06/01/18 15:18 Dose: 5 ml Doxycycline Hyclate 100 mg/ (Sodium Chloride) 100 mls @ 100 mls/hr IVPB Q12 [facility]; Protocol Last Admin: 06/01/18 10:40 Dose: 100 mls/hr Ceftriaxone Sodium (Rocephin 1 Gram Ivpb) 1 gm in 100 mls @ 100 mls/hr IVPB DAILY [facility]; Protocol Last Admin: 06/01/18 09:36 Dose: 100 mls/hr Ketorolac Tromethamine (Toradol) 15 mg IVP Q6H PRN PRN Reason: Pain, severe (8-10) Last Admin: 06/01/18 15:18 Dose: 15 mg Levalbuterol HCl (Xopenex) 0.63 mg IH [id number] PRN PRN Reason: Shortness of Breath Last Admin: 05/31/18 19:53 Dose: 0.63 mg Lidocaine (Lidoderm) 1 ea TD DAILY [facility] Last Admin: 06/01/18 09:31 Dose: 1 ea Methylprednisolone (Solu-Medrol) 40 mg IVP BID [facility] Last Admin: 06/01/18 09:37 Dose: 40 mg Pantoprazole Sodium (Protonix Ec Tab) 40 mg PO 0600 [facility] Last Admin: 06/01/18 05:32 Dose: 40 mg Polyethylene Glycol (Miralax) 17 gm PO BID [facility] Last Admin: 06/01/18 09:31 Dose: 17 gm Simethicone (Mylicon Chew Tab) 80 mg PO PCHS PRN PRN Reason: GI distress Last Admin: 05/30/18 21:46 Dose: 80 mg - Labs Labs: 06/01/18 05:30 06/01/18 05:30 Attending/Attestation - Attestation I have personally seen and examined this patient.: Yes I have fully participated in the care of the patient.: Yes I have reviewed all pertinent clinical information, including history, physical exam and plan: Yes Notes (Text): 06/01/18 15:37 37 year old male with past medical history of asthma and recent bronchitis prescribed antibiotics with failed outpatient treatment who presented with complaint of fever, cough and shortness of breath. He was found to have multifocal pneumonia on CT chest and started on iv antibiotics. He is also on iv steroids for asthma exacerbation which we will taper today to 40 mg q12. Initial ABG showed respiratory alkalosis which has improved. Continue with steroids, duonebs and antibiotics. Continue with xopenex, pulmicort and brovana. He was counselled on smoking cessation. Continue with colace and miralax for constipation. Kolby Temple MD Hospitalist.
[2018-06-02] MEDS: Levalbuterol 0.63 MG/3 ML Inhal Soln UD IH PRN (03:51)
[2018-06-02] MEDS: Pantoprazole 40 mg EC Tab PO SCH (05:34)
--- NOTE | 2018-06-02 06:50 | CP.PCM.PN ---
<Fabi Duke L - Last Filed: 06/02/18 16:04> Subjective - Date & Time of Evaluation Date of Evaluation: 06/02/18 Time of Evaluation: 06:49 - Subjective Subjective: Resident Progress Note for Hospitalist Service Patient examined this morning while resting in his chair with no acute respiratory distress. Patient states that his shortness of breath and cough is unchanged from prior. He is unable to ambulate without feeling lightheaded. Patient did have small bowel movement. Denies fevers, chills, chest pain, dysuri a. Objective - Vital Signs/Intake and Output Vital Signs (last 24 hours): Temp Pulse Resp BP Pulse Ox 97.7 F 75 20 130/87 96 06/01/18 16:31 06/01/18 16:31 06/01/18 16:31 06/01/18 16:31 06/01/18 16:31 - Medications Medications: Current Medications Arformoterol Tartrate (Brovana) 15 mcg IH [id number] [facility] Last Admin: 06/01/18 19:28 Dose: 15 mcg Bisacodyl (Dulcolax) 5 mg PO BID PRN PRN Reason: Constipation Last Admin: 06/01/18 09:35 Dose: 5 mg Budesonide (Pulmicort Respules) 0.5 mg IH [id number] [facility] Last Admin: 06/01/18 19:28 Dose: 0.5 mg Docusate Sodium (Colace) 100 mg PO BID PRN PRN Reason: Constipation Last Admin: 06/01/18 21:49 Dose: 100 mg Guaifenesin/Codeine Phosphate (Robitussin W/Codeine) 5 ml PO Q4H PRN PRN Reason: Cough and congestion Last Admin: 06/01/18 23:09 Dose: 5 ml Doxycycline Hyclate 100 mg/ (Sodium Chloride) 100 mls @ 100 mls/hr IVPB Q12 [facility]; Protocol Last Admin: 06/01/18 21:50 Dose: 100 mls/hr Ceftriaxone Sodium (Rocephin 1 Gram Ivpb) 1 gm in 100 mls @ 100 mls/hr IVPB DAILY [facility]; Protocol Last Admin: 06/01/18 09:36 Dose: 100 mls/hr Ketorolac Tromethamine (Toradol) 15 mg IVP Q6H PRN PRN Reason: Pain, severe (8-10) Last Admin: 06/02/18 05:38 Dose: 15 mg Levalbuterol HCl (Xopenex) 0.63 mg IH [id number] PRN PRN Reason: Shortness of Breath Last Admin: 06/02/18 03:51 Dose: 0.63 mg Lidocaine (Lidoderm) 1 ea TD DAILY [facility] Last Admin: 06/01/18 09:31 Dose: 1 ea Methylprednisolone (Solu-Medrol) 40 mg IVP BID [facility] Last Admin: 06/01/18 18:46 Dose: Not Given Pantoprazole Sodium (Protonix Ec Tab) 40 mg PO 0600 [facility] Last Admin: 06/02/18 05:34 Dose: 40 mg Polyethylene Glycol (Miralax) 17 gm PO BID [facility] Last Admin: 06/01/18 17:37 Dose: 17 gm Simethicone (Mylicon Chew Tab) 80 mg PO PCHS PRN PRN Reason: GI distress Last Admin: 05/30/18 21:46 Dose: 80 mg - Labs Labs: 06/01/18 05:30 06/01/18 05:30 - Additional Findings Additional findings: - Constitutional Appears: Well, No Acute Distress - Head Exam Head Exam: ATRAUMATIC, NORMAL INSPECTION, NORMOCEPHALIC - Eye Exam Eye Exam: EOMI, Normal appearance - ENT Exam ENT Exam: Mucous Membranes Dry - Neck Exam Neck exam: Positive for: Normal Inspection - Respiratory Exam Respiratory Exam: Rhonchi, Wheezes (improved). absent: Respiratory Distress - Cardiovascular Exam Cardiovascular Exam: Tachycardia, REGULAR RHYTHM, +S1, +S2. absent: Gallop, JVD, Rubs - GI/Abdominal Exam GI & Abdominal Exam: Distended, Normal Bowel Sounds, Soft. absent: Tenderness - Extremities Exam Extremities exam: Positive for: normal capillary refill, normal inspection, peda l pulses present - Neurological Exam Neurological exam: Alert, CN II-XII Intact, Normal Gait, Oriented x3, Reflexes Normal - Psychiatric Exam Psychiatric exam: Normal Affect, Normal Mood - Skin Skin Exam: Dry, Intact, Normal Color, Warm Assessment and Plan - Assessment and Plan (Free Text) Assessment: 37 y/o male with PMH of asthma, chronic bronchitis presents to the ED with 5 days h/o progressive SOB, dry cough, fever, generalized body aches and diaphoresis who failed outpatient abx, brochodilator, steroid therapy, admitted for management of multifocal pneumonia and exacerbation of asthma. Plan: Shortness of breath - multifocal pneumonia failing outpatient treatment vs. asthma exacerbation - CXR: diffusely increased interstitial lung markings consistent with bronchitis, acute versus chronic - Repeat CXR shows bronchitis, ABG unremarkable - CT chest shows no PE, nodular ground glass densities of both lung bases consistent with multifocal pneumonia - BCx neg x2, flu neg - O2 NC PRN - Doxycline 100 mg IV Q12H, Rocephin 1 gm IV daily - Brovana, pulmicort, Xopenex, robitussin - Solu-medrol taper Abdominal pain - likely due to constipation - Abd U/S from 05/28 shows echogenic liver, possible hepatic parenchymal disease or fatty infiltration - Colace, Miralax PRN, Dulcolax, enema - Hepatitis panel/HIV negative PPX -GI ppx: protonix -DVT ppx: SCD Case discussed with Dr. Temple <Kolby Temple - Last Filed: 06/02/18 16:47> Objective - Vital Signs/Intake and Output Vital Signs (last 24 hours): Temp Pulse Resp BP Pulse Ox 97.8 F 65 18 111/74 98 06/02/18 08:12 06/02/18 08:12 06/02/18 08:12 06/02/18 08:12 06/02/18 08:12 Intake and Output: 06/02/18 06/02/18 06:59 18:59 Intake Total 280 Balance 280 - Medications Medications: Current Medications Albuterol/Ipratropium (Duoneb 3 Mg/0.5 Mg (3 Ml) Ud) 3 ml IH [id number] [facility] Last Admin: 06/02/18 13:47 Dose: 3 ml Arformoterol Tartrate (Brovana) 15 mcg IH [id number] [facility] Last Admin: 06/02/18 08:08 Dose: 15 mcg Bisacodyl (Dulcolax) 5 mg PO BID PRN PRN Reason: Constipation Last Admin: 06/01/18 09:35 Dose: 5 mg Budesonide (Pulmicort Respules) 0.5 mg IH [id number] [facility] Last Admin: 06/02/18 08:08 Dose: 0.5 mg Docusate Sodium (Colace) 100 mg PO BID PRN PRN Reason: Constipation Last Admin: 06/02/18 09:28 Dose: 100 mg Guaifenesin/Codeine Phosphate (Robitussin W/Codeine) 5 ml PO Q4H PRN PRN Reason: Cough and congestion Last Admin: 06/02/18 09:29 Dose: 5 ml Doxycycline Hyclate 100 mg/ (Sodium Chloride) 100 mls @ 100 mls/hr IVPB Q12 [facility]; Protocol Last Admin: 06/01/18 21:50 Dose: 100 mls/hr Ceftriaxone Sodium (Rocephin 1 Gram Ivpb) 1 gm in 100 mls @ 100 mls/hr IVPB DAILY [facility]; Protocol Last Admin: 06/02/18 09:30 Dose: 100 mls/hr Ketorolac Tromethamine (Toradol) 15 mg IVP Q6H PRN PRN Reason: Pain, severe (8-10) Last Admin: 06/02/18 09:33 Dose: 15 mg Levalbuterol HCl (Xopenex) 0.63 mg IH [id number] PRN PRN Reason: Shortness of Breath Last Admin: 06/02/18 03:51 Dose: 0.63 mg Lidocaine (Lidoderm) 1 ea TD DAILY [facility] Last Admin: 06/02/18 09:29 Dose: 1 ea Methylprednisolone (Solu-Medrol) 30 mg IVP Q12H [facility] Last Admin: 06/02/18 14:52 Dose: 30 mg Ondansetron HCl (Zofran Inj) 4 mg IVP Q4H PRN PRN Reason: Nausea/Vomiting Pantoprazole Sodium (Protonix Ec Tab) 40 mg PO 0600 [facility] Last Admin: 06/02/18 05:34 Dose: 40 mg Polyethylene Glycol (Miralax) 17 gm PO BID [facility] Last Admin: 06/02/18 09:29 Dose: 17 gm Simethicone (Mylicon Chew Tab) 80 mg PO PCHS PRN PRN Reason: GI distress Last Admin: 05/30/18 21:46 Dose: 80 mg - Labs Labs: 06/02/18 06:30 06/02/18 06:30 Attending/Attestation - Attestation I have personally seen and examined this patient.: Yes I have fully participated in the care of the patient.: Yes I have reviewed all pertinent clinical information, including history, physical exam and plan: Yes Notes (Text): 06/02/18 16:43 37 year old male with past medical history of asthma and recent bronchitis prescribed antibiotics with failed outpatient treatment who presented with complaint of fever, cough and shortness of breath. He was found to have multifocal pneumonia on CT chest and started on iv antibiotics. He is also on iv steroids for asthma exacerbation. Symptoms are slowly improving on tapering steroids. Initial ABG showed respiratory alkalosis which has improved. Will repeat CXR and ABG today. Continue with steroids, duonebs and antibiotics. Continue with xopenex, pulmicort and brovana. He was counselled on smoking cessation. Continue with colace and miralax for constipation. Will give enema today as patient still reports no bowel movement. Kolby Temple MD Hospitalist.
[2018-06-02 07:04] LABS: BASO # 0.01 K/mm3 (0.0-2.0); BASO % 0.1 % (0.0-3.0); EOS % 0.4 % (1.5-5.0); GRAN # 4.37 (1.4-6.5); GRAN % 57.9 % (50.0-68.0); HEMOGLOBIN 12.7 g/dL (14.0-18.0); LYMPH # 2.1 (1.2-3.4); LYMPH % 27.8 % (22.0-35.0); MEAN CELL VOLUME 78.9 fl (80.0-105.0); MEAN CORPUSCULAR HGB CONC 31.8 g/dl (31.0-37.0); MEAN PLATELET VOLUME 11.5 fl (7.0-11.0); MONO % 13.8 % (1.0-6.0); RBC 5.07 10^6/uL (3.5-6.1); RED CELL DISTRIBUTION WIDTH 13.8 % (11.5-14.5); WHITE BLOOD COUNT 7.6 10^3/uL (4.5-11.0)
[2018-06-02 07:06] LABS: ALB/GLOB RATIO 1.2 (1.1-1.8); ALBUMIN 3.4 g/dL (3.0-4.8); ALT/SGPT 31 U/L (7-56); AST/SGOT 28 U/L (17-59); BLOOD UREA NITROGEN 26 mg/dL (7-21); CALCIUM 8.4 mg/dL (8.4-10.5); GFR NON-AFRICAN AMERICAN > 60
[2018-06-02] MEDS: Arformoterol 15 mcg/2 ml Inh Sol IH SCH ×2 (08:08→22:26)
[2018-06-02] MEDS: Budesonide 0.5 mg/2 ml Inhal Susp UD IH SCH ×2 (08:08→22:27)
[2018-06-02] MEDS: guaiFENesin-Codeine 100-10mg/5ml Syrup (5 ml) UD PO PRN (09:29)
[2018-06-02] MEDS: POLYETHYLENE GLYCOL 3350 17 GM/Dose PACKET PO SCH ×2 (09:29→17:40)
[2018-06-02] MEDS: Lidocaine 5% Patch TD SCH (09:29)
[2018-06-02] MEDS: MethylPREDNISolone 40 mg Vial IVP SCH (09:30)
[2018-06-02] MEDS: cefTRIAXone 1 gm 1 GM/100 ML BAG IVPB SCH (09:30)
[2018-06-02 11:34] LABS: ARTERIAL BLOOD GAS HCO3 28.5 mmol/L (21-28); ARTERIAL BLOOD GAS HEMOGLOBIN 12.3 g/dL (11.7-17.4); ARTERIAL BLOOD GAS O2 CAPACITY 16.9 mL/dl (16-24); ARTERIAL BLOOD GAS O2 CONTENT 15.3 ML/dl (15-23); ARTERIAL BLOOD GAS O2 SAT 90.5 % (95-98); ARTERIAL BLOOD GAS PCO2 44 mm/Hg (35-45); ARTERIAL BLOOD GAS PH 7.42 (7.35-7.45); ARTERIAL BLOOD GAS TCO2 29.9 mmol.L (22-28)
--- NOTE | 2018-06-02 13:38 | RAD ---
Date of service: 06/02/2018 HISTORY: evalute congestion COMPARISON: 05/29/2018 TECHNIQUE: Chest PA and lateral FINDINGS: LUNGS: No active pulmonary disease. There is peribronchial thickening consistent with bronchitis PLEURA: No significant pleural effusion identified. No pneumothorax apparent. CARDIOVASCULAR: No aortic atherosclerotic calcification present. Normal cardiac size. No pulmonary vascular congestion. OSSEOUS STRUCTURES: No significant abnormalities. VISUALIZED UPPER ABDOMEN: Normal. OTHER FINDINGS: None. IMPRESSION: Peribronchial thickening consistent with bronchitis
[2018-06-02] MEDS ORDERED: MethylPREDNISolone 40 mg Vial IVP SCH (13:45)
[2018-06-02] MEDS: Albuterol-Ipratrop 3 mg / 0.5 (3 ml) UD IH SCH ×2 (13:47→22:26)
[2018-06-02 14:15] LABS: ARTERIAL BLOOD GAS HCO3 25.3 mmol/L (21-28); ARTERIAL BLOOD GAS HEMOGLOBIN 12.8 g/dL (11.7-17.4); ARTERIAL BLOOD GAS O2 CAPACITY 17.6 mL/dl (16-24); ARTERIAL BLOOD GAS O2 CONTENT 17.1 ML/dl (15-23); ARTERIAL BLOOD GAS O2 SAT 97.2 % (95-98); ARTERIAL BLOOD GAS PCO2 39 mm/Hg (35-45); ARTERIAL BLOOD GAS PH 7.42 (7.35-7.45); ARTERIAL BLOOD GAS TCO2 26.5 mmol.L (22-28)
[2018-06-02] MEDS ORDERED: Magnesium Citrate Oral SOL (300 ml) PO ONE (15:41)
[2018-06-02 17:28] VITALS: RESP 20
[2018-06-03] MEDS: Albuterol-Ipratrop 3 mg / 0.5 (3 ml) UD IH SCH ×2 (03:18→08:21)
[2018-06-03] MEDS ORDERED: MethylPREDNISolone 40 mg Vial IVP SCH (04:08)
[2018-06-03] MEDS: Pantoprazole 40 mg EC Tab PO SCH (06:39)
[2018-06-03 07:06] LABS: BASO # 0.01 K/mm3 (0.0-2.0); BASO % 0.1 % (0.0-3.0); EOS % 0.2 % (1.5-5.0); GRAN # 5.57 (1.4-6.5); HEMOGLOBIN 13.1 g/dL (14.0-18.0); LYMPH # 2.1 (1.2-3.4); MEAN CELL VOLUME 80.2 fl (80.0-105.0); MEAN CORPUSCULAR HGB CONC 31.2 g/dl (31.0-37.0); MEAN PLATELET VOLUME 10.9 fl (7.0-11.0); MONO # 1.1 (0.1-0.6); MONO % 12.7 % (1.0-6.0); RBC 5.24 10^6/uL (3.5-6.1); RED CELL DISTRIBUTION WIDTH 13.9 % (11.5-14.5); WHITE BLOOD COUNT 8.8 10^3/uL (4.5-11.0)
[2018-06-03 07:29] LABS: ALB/GLOB RATIO 1.2 (1.1-1.8); ALBUMIN 3.6 g/dL (3.0-4.8); ALT/SGPT 35 U/L (7-56); AST/SGOT 30 U/L (17-59); BLOOD UREA NITROGEN 24 mg/dL (7-21); CALCIUM 8.5 mg/dL (8.4-10.5); GFR NON-AFRICAN AMERICAN > 60
[2018-06-03 07:50] VITALS: BP 119/77; PULSE 80; TEMP 97.7; O2SAT 98
[2018-06-03] MEDS: Arformoterol 15 mcg/2 ml Inh Sol IH SCH (08:21)
[2018-06-03] MEDS: Budesonide 0.5 mg/2 ml Inhal Susp UD IH SCH (08:21)
[2018-06-03] MEDS: Lidocaine 5% Patch TD SCH (10:27)
[2018-06-03] MEDS: cefTRIAXone 1 gm 1 GM/100 ML BAG IVPB SCH (10:28)
[2018-06-03] MEDS: POLYETHYLENE GLYCOL 3350 17 GM/Dose PACKET PO SCH (10:28)
--- NOTE | 2018-06-03 11:55 | CP.PCM.DIS ---
<Ameya Ramos - Last Filed: 06/03/18 12:04> Provider - Provider Date of Admission: 05/31/18 10:56 Attending physician: Kolby Temple MD Time Spent in preparation of Discharge (in minutes): 45 Diagnosis - Discharge Diagnosis (1) Asthma Status: Chronic (2) Bronchopneumonia Status: Resolved Hospital Course - Lab Results Lab Results: Micro Results 05/29/18 23:20 Blood-Venous Blood Culture - Preliminary NO GROWTH AFTER 4 DAYS 05/29/18 22:50 Blood-Venous Blood Culture - Preliminary NO GROWTH AFTER 4 DAYS 05/30/18 23:30 Throat Group A Strep Throat Culture - Final NO BETA STREP GROUP A ISOLATED. Most Recent Lab Values WBC 8.8 10^3/uL (4.5-11.0) 06/03/18 06:00 RBC 5.24 10^6/uL (3.5-6.1) 06/03/18 06:00 Hgb 13.1 g/dL (14.0-18.0) L 06/03/18 06:00 Hct 42.0 % (42.0-52.0) 06/03/18 06:00 MCV 80.2 fl (80.0-105.0) 06/03/18 06:00 MCH 25.0 pg (25.0-35.0) 06/03/18 06:00 MCHC 31.2 g/dl (31.0-37.0) 06/03/18 06:00 RDW 13.9 % (11.5-14.5) 06/03/18 06:00 Plt Count 204 10^3/uL (120.0-450.0) 06/03/18 06:00 MPV 10.9 fl (7.0-11.0) 06/03/18 06:00 Gran % 63.0 % (50.0-68.0) 06/03/18 06:00 Lymph % (Auto) 24.0 % (22.0-35.0) 06/03/18 06:00 [place] % (Auto) 12.7 % (1.0-6.0) H 06/03/18 06:00 Eos % (Auto) 0.2 % (1.5-5.0) L 06/03/18 06:00 Baso % (Auto) 0.1 % (0.0-3.0) 06/03/18 06:00 Gran # 5.57 (1.4-6.5) 06/03/18 06:00 Lymph # (Auto) 2.1 (1.2-3.4) 06/03/18 06:00 [place] # (Auto) 1.1 (0.1-0.6) H 06/03/18 06:00 Eos # (Auto) 0.0 (0.0-0.7) 06/03/18 06:00 Baso # (Auto) 0.01 K/mm3 (0.0-2.0) 06/03/18 06:00 D-Dimer, Quantitative < 200 ng/mlDDU (0-243) 05/29/18 23:16 pCO2 39 mm/Hg (35-45) 06/02/18 14:10 pO2 71.0 mm/Hg (80-100) L 06/02/18 14:10 HCO3 25.3 mmol/L (21-28) 06/02/18 14:10 ABG pH 7.42 (7.35-7.45) 06/02/18 14:10 ABG Total CO2 26.5 mmol.L (22-28) 06/02/18 14:10 ABG O2 Saturation 97.2 % (95-98) 06/02/18 14:10 ABG O2 Content 17.1 ML/dl (15-23) 06/02/18 14:10 ABG Base Excess 0.8 mmol/L (-2.0-3.0) 06/02/18 14:10 ABG Hemoglobin 12.8 g/dL (11.7-17.4) 06/02/18 14:10 ABG Carboxyhemoglobin 1.7 % (0.5-1.5) H 06/02/18 14:10 POC ABG HHb (Measured) 2.7 % (0-5) 06/02/18 14:10 ABG Methemoglobin 0.9 % (0.0-3.0) 06/02/18 14:10 ABG O2 Capacity 17.6 mL/dl (16-24) 06/02/18 14:10 ABG Potassium 3.5 mmol/L (3.6-5.2) L 05/29/18 23:09 VBG pH 7.38 (7.32-7.43) 05/30/18 08:20 VBG pCO2 42.0 (40-60) 05/30/18 08:20 VBG HCO3 24.8 mmol/l (21-28) 05/30/18 08:20 VBG Total CO2 26.1 mmol.L (22-28) 05/30/18 08:20 VBG O2 Sat (Calc) 94.0 % (40-65) H 05/30/18 08:20 VBG Base Excess -0.4 mmol/L (0.0-2.0) L 05/30/18 08:20 VBG Potassium 4.4 mmol/L (3.6-5.2) 05/30/18 08:20 Hgb O2 Saturation 94.7 % (95.0-98.0) L 06/02/18 14:10 Sodium 135.0 mmol/L (132-148) 05/30/18 08:20 Chloride 100.0 mmol/L (98-107) 05/30/18 08:20 Glucose 146 mg/dl (75-110) H 05/30/18 08:20 Lactate 2.4 mmol/L (0.7-2.1) H 05/30/18 08:20 FiO2 21.0 % 06/02/18 14:10 Sodium 140 mmol/L (132-148) 06/03/18 06:00 Potassium 4.7 mmol/L (3.6-5.0) 06/03/18 06:00 Chloride 101 mmol/L (98-107) 06/03/18 06:00 Carbon Dioxide 34 mmol/L (21-33) H 06/03/18 06:00 Anion Gap 9 (10-20) L 06/03/18 06:00 BUN 24 mg/dL (7-21) H 06/03/18 06:00 Creatinine 1.0 mg/dl (0.8-1.5) 06/03/18 06:00 Est GFR ( Amer) > 60 06/03/18 06:00 Est GFR (Non-Af Amer) > 60 06/03/18 06:00 Random Glucose 92 mg/dL (70-110) 06/03/18 06:00 Hemoglobin A1c 5.8 % (4.2-6.5) 05/30/18 06:00 Calcium 8.5 mg/dL (8.4-10.5) 06/03/18 06:00 Phosphorus 3.6 mg/dL (2.5-4.5) 06/03/18 06:00 Magnesium 2.6 mg/dL (1.7-2.2) H 06/03/18 06:00 Total Bilirubin 0.2 mg/dL (0.2-1.3) 06/03/18 06:00 Direct Bilirubin 0.2 mg/dL (0.0-0.4) 05/30/18 06:00 AST 30 U/L (17-59) 06/03/18 06:00 ALT 35 U/L (7-56) 06/03/18 06:00 Alkaline Phosphatase 71 U/L (38-126) 06/03/18 06:00 Lactate Dehydrogenase 524 U/L (333-699) 05/29/18 23:16 Total Creatine Kinase 443 U/L (35-230) H 05/29/18 23:16 CK-MB (CK-2) 1.1 ng/mL (0.0-3.6) 05/29/18 23:16 CK-MB (CK-2) % Cancelled 05/29/18 23:16 Troponin I < 0.01 ng/mL 05/29/18 23:16 NT-Pro-B Natriuret Pep 27.5 pg/mL (0-450) 05/29/18 23:16 Total Protein 6.6 g/dL (5.8-8.3) 06/03/18 06:00 Albumin 3.6 g/dL (3.0-4.8) 06/03/18 06:00 Globulin 3.0 gm/dL 06/03/18 06:00 Albumin/Globulin Ratio 1.2 (1.1-1.8) 06/03/18 06:00 Triglycerides 66 mg/dL (35-160) 05/30/18 06:00 Cholesterol 145 mg/dL (130-200) 05/30/18 06:00 LDL Cholesterol Direct 98 mg/dL (0-129) 05/30/18 06:00 HDL Cholesterol 36 mg/dL (29-60) 05/30/18 06:00 Lipase 144 U/L (23-300) 05/29/18 23:16 Procalcitonin < 0.05 NG/ML (0.19-0.49) L 05/30/18 08:20 Free T4 0.98 ng/dL (0.78-2.19) 05/29/18 23:16 TSH 3rd Generation 2.83 mIU/mL (0.46-4.68) 05/29/18 23:16 Arterial Blood Potassium 3.5 mmol/L (3.6-5.2) L 05/29/18 23:09 Venous Blood Potassium 4.4 mmol/L (3.6-5.2) 05/30/18 08:20 Urine Color Yellow (YELLOW) 05/30/18 11:30 Urine Appearance Clear (CLEAR) 05/30/18 11:30 Urine pH 6.0 (4.7-8.0) 05/30/18 11:30 Ur Specific Crystal >= 1.030 (1.005-1.035) 05/30/18 11:30 Urine Protein Negative mg/dL (<30 mg/dL) 05/30/18 11:30 Urine Glucose (UA) 100 mg/dL (NEGATIVE) H 05/30/18 11:30 Urine Ketones Negative mg/dL (NEGATIVE) 05/30/18 11:30 Urine Blood Negative (NEGATIVE) 05/30/18 11:30 Urine Nitrate Negative (NEGATIVE) 05/30/18 11:30 Urine Bilirubin Negative (NEGATIVE) 05/30/18 11:30 Urine Urobilinogen 0.2 E.U./dL (<1 E.U./dL) 05/30/18 11:30 Ur Leukocyte Esterase Negative Devon/uL (NEGATIVE) 05/30/18 11:30 Urine Opiates Screen Positive (NEGATIVE) H 05/30/18 11:30 Urine Methadone Screen Negative (NEGATIVE) 05/30/18 11:30 Ur Barbiturates Screen Negative (NEGATIVE) 05/30/18 11:30 Ur Phencyclidine Scrn Negative (NEGATIVE) 05/30/18 11:30 Ur Amphetamines Screen Negative (NEGATIVE) 05/30/18 11:30 U Benzodiazepines Scrn Negative (NEGATIVE) 05/30/18 11:30 U Oth Cocaine Metabols Negative (NEGATIVE) 05/30/18 11:30 U Cannabinoids Screen Negative (NEGATIVE) 05/30/18 11:30 Hepatitis A IgM Ab Negative (NEGATIVE) 05/29/18 23:35 Hep Bs Antigen Negative (NEGATIVE) 05/29/18 23:35 Hep B Core IgM Ab Negative (NEGATIVE) 05/29/18 23:35 Hepatitis C Antibody Negative (NEGATIVE) 05/29/18 23:35 HIV-1 Ab Rapid Screen Non reactive (NON REAC) 05/29/18 23:35 Influenza Typ A,B (EIA) Negative for flu a/b (NEGATIVE) 05/30/18 00:07 - Hospital Course Hospital Course: 37 year old male with past medical history of Asthma presents to the hospital for failed outpatient therapy for acute bronchitis. Patient was prescribed a Z- pack outpatient which did not help. Patient presented to the hospital and was fo und to have multifocal pneumonia on chest CT. Patient was placed on Doxycycline and Rocephin. Patient also given steroids which helped with asthma exacerbation. Patient noted to have metabolic alkalosis on ABG. Patient improved on antibiotics. Patient had a repeat chest x-ray which showed bronchitis. Patient will be discharged on Augmentin and Doxycycline for 4 days. Patient will also be given a Medrol dose pack. Patient given prescription for Miralax. Patient advised to follow up with PMD within 1 week. Discharge Exam - Head Exam Head Exam: ATRAUMATIC, NORMAL INSPECTION, NORMOCEPHALIC - Eye Exam Eye Exam: EOMI, Normal appearance - ENT Exam ENT Exam: Mucous Membranes Moist - Respiratory Exam Respiratory Exam: Wheezes (Mild b/l), NORMAL BREATHING PATTERN. absent: Rales, Rhonchi - Cardiovascular Exam Cardiovascular Exam: RRR, +S1, +S2 - GI/Abdominal Exam GI & Abdominal Exam: Normal Bowel Sounds, Soft, Unremarkable. absent: T enderness - Extremities Exam Extremities exam: normal inspection - Neurological Exam Neurological exam: Alert, CN II-XII Intact, Oriented x3 - Psychiatric Exam Psychiatric exam: Normal Affect, Normal Mood - Skin Skin Exam: Dry, Intact, Warm Discharge Plan - Discharge Medications Prescriptions: Albuterol Sulfate [Proair Hfa] 0.09 mg IH Q6H PRN #1 inh PRN Reason: Shortness Of Breath Amoxicillin/Potassium Clav [Augmentin 500-125 Tablet] 1 each PO BID #8 tablet Doxycycline Hyclate 100 mg PO BID #8 capsule Methylprednisolone [Medrol Dose Pack (21 tabs)] 4 mg PO DAILY #21 mg Polyethylene Glycol 3350 [Miralax] 17 gm PO BID #8 packet - Follow Up Plan Condition: GUARDED Disposition: HOME/ ROUTINE Instructions: Asthma (DC), Asthma (GEN) Additional Instructions: Take medications as prescribed Follow up with PMD within 1 week If you experience shortness of breath, and or chest tightness please call your primary MD or go to the nearest emergency room. <Kolby Temple - Last Filed: 06/03/18 13:23> Provider - Provider Date of Admission: 05/31/18 10:56 Attending physician: Kolby Temple MD Hospital Course - Lab Results Lab Results: Micro Results 05/29/18 23:20 Blood-Venous Blood Culture - Preliminary NO GROWTH AFTER 4 DAYS 05/29/18 22:50 Blood-Venous Blood Culture - Preliminary NO GROWTH AFTER 4 DAYS 05/30/18 23:30 Throat Group A Strep Throat Culture - Final NO BETA STREP GROUP A ISOLATED. Most Recent Lab Values WBC 8.8 10^3/uL (4.5-11.0) 06/03/18 06:00 RBC 5.24 10^6/uL (3.5-6.1) 06/03/18 06:00 Hgb 13.1 g/dL (14.0-18.0) L 06/03/18 06:00 Hct 42.0 % (42.0-52.0) 06/03/18 06:00 MCV 80.2 fl (80.0-105.0) 06/03/18 06:00 MCH 25.0 pg (25.0-35.0) 06/03/18 06:00 MCHC 31.2 g/dl (31.0-37.0) 06/03/18 06:00 RDW 13.9 % (11.5-14.5) 06/03/18 06:00 Plt Count 204 10^3/uL (120.0-450.0) 06/03/18 06:00 MPV 10.9 fl (7.0-11.0) 06/03/18 06:00 Gran % 63.0 % (50.0-68.0) 06/03/18 06:00 Lymph % (Auto) 24.0 % (22.0-35.0) 06/03/18 06:00 [place] % (Auto) 12.7 % (1.0-6.0) H 06/03/18 06:00 Eos % (Auto) 0.2 % (1.5-5.0) L 06/03/18 06:00 Baso % (Auto) 0.1 % (0.0-3.0) 06/03/18 06:00 Gran # 5.57 (1.4-6.5) 06/03/18 06:00 Lymph # (Auto) 2.1 (1.2-3.4) 06/03/18 06:00 [place] # (Auto) 1.1 (0.1-0.6) H 06/03/18 06:00 Eos # (Auto) 0.0 (0.0-0.7) 06/03/18 06:00 Baso # (Auto) 0.01 K/mm3 (0.0-2.0) 06/03/18 06:00 D-Dimer, Quantitative < 200 ng/mlDDU (0-243) 05/29/18 23:16 pCO2 39 mm/Hg (35-45) 06/02/18 14:10 pO2 71.0 mm/Hg (80-100) L 06/02/18 14:10 HCO3 25.3 mmol/L (21-28) 06/02/18 14:10 ABG pH 7.42 (7.35-7.45) 06/02/18 14:10 ABG Total CO2 26.5 mmol.L (22-28) 06/02/18 14:10 ABG O2 Saturation 97.2 % (95-98) 06/02/18 14:10 ABG O2 Content 17.1 ML/dl (15-23) 06/02/18 14:10 ABG Base Excess 0.8 mmol/L (-2.0-3.0) 06/02/18 14:10 ABG Hemoglobin 12.8 g/dL (11.7-17.4) 06/02/18 14:10 ABG Carboxyhemoglobin 1.7 % (0.5-1.5) H 06/02/18 14:10 POC ABG HHb (Measured) 2.7 % (0-5) 06/02/18 14:10 ABG Methemoglobin 0.9 % (0.0-3.0) 06/02/18 14:10 ABG O2 Capacity 17.6 mL/dl (16-24) 06/02/18 14:10 ABG Potassium 3.5 mmol/L (3.6-5.2) L 05/29/18 23:09 VBG pH 7.38 (7.32-7.43) 05/30/18 08:20 VBG pCO2 42.0 (40-60) 05/30/18 08:20 VBG HCO3 24.8 mmol/l (21-28) 05/30/18 08:20 VBG Total CO2 26.1 mmol.L (22-28) 05/30/18 08:20 VBG O2 Sat (Calc) 94.0 % (40-65) H 05/30/18 08:20 VBG Base Excess -0.4 mmol/L (0.0-2.0) L 05/30/18 08:20 VBG Potassium 4.4 mmol/L (3.6-5.2) 05/30/18 08:20 Hgb O2 Saturation 94.7 % (95.0-98.0) L 06/02/18 14:10 Sodium 135.0 mmol/L (132-148) 05/30/18 08:20 Chloride 100.0 mmol/L (98-107) 05/30/18 08:20 Glucose 146 mg/dl (75-110) H 05/30/18 08:20 Lactate 2.4 mmol/L (0.7-2.1) H 05/30/18 08:20 FiO2 21.0 % 06/02/18 14:10 Sodium 140 mmol/L (132-148) 06/03/18 06:00 Potassium 4.7 mmol/L (3.6-5.0) 06/03/18 06:00 Chloride 101 mmol/L (98-107) 06/03/18 06:00 Carbon Dioxide 34 mmol/L (21-33) H 06/03/18 06:00 Anion Gap 9 (10-20) L 06/03/18 06:00 BUN 24 mg/dL (7-21) H 06/03/18 06:00 Creatinine 1.0 mg/dl (0.8-1.5) 06/03/18 06:00 Est GFR ( Amer) > 60 06/03/18 06:00 Est GFR (Non-Af Amer) > 60 06/03/18 06:00 Random Glucose 92 mg/dL (70-110) 06/03/18 06:00 Hemoglobin A1c 5.8 % (4.2-6.5) 05/30/18 06:00 Calcium 8.5 mg/dL (8.4-10.5) 06/03/18 06:00 Phosphorus 3.6 mg/dL (2.5-4.5) 06/03/18 06:00 Magnesium 2.6 mg/dL (1.7-2.2) H 06/03/18 06:00 Total Bilirubin 0.2 mg/dL (0.2-1.3) 06/03/18 06:00 Direct Bilirubin 0.2 mg/dL (0.0-0.4) 05/30/18 06:00 AST 30 U/L (17-59) 06/03/18 06:00 ALT 35 U/L (7-56) 06/03/18 06:00 Alkaline Phosphatase 71 U/L (38-126) 06/03/18 06:00 Lactate Dehydrogenase 524 U/L (333-699) 05/29/18 23:16 Total Creatine Kinase 443 U/L (35-230) H 05/29/18 23:16 CK-MB (CK-2) 1.1 ng/mL (0.0-3.6) 05/29/18 23:16 CK-MB (CK-2) % Cancelled 05/29/18 23:16 Troponin I < 0.01 ng/mL 05/29/18 23:16 NT-Pro-B Natriuret Pep 27.5 pg/mL (0-450) 05/29/18 23:16 Total Protein 6.6 g/dL (5.8-8.3) 06/03/18 06:00 Albumin 3.6 g/dL (3.0-4.8) 06/03/18 06:00 Globulin 3.0 gm/dL 06/03/18 06:00 Albumin/Globulin Ratio 1.2 (1.1-1.8) 06/03/18 06:00 Triglycerides 66 mg/dL (35-160) 05/30/18 06:00 Cholesterol 145 mg/dL (130-200) 05/30/18 06:00 LDL Cholesterol Direct 98 mg/dL (0-129) 05/30/18 06:00 HDL Cholesterol 36 mg/dL (29-60) 05/30/18 06:00 Lipase 144 U/L (23-300) 05/29/18 23:16 Procalcitonin < 0.05 NG/ML (0.19-0.49) L 05/30/18 08:20 Free T4 0.98 ng/dL (0.78-2.19) 05/29/18 23:16 TSH 3rd Generation 2.83 mIU/mL (0.46-4.68) 05/29/18 23:16 Arterial Blood Potassium 3.5 mmol/L (3.6-5.2) L 05/29/18 23:09 Venous Blood Potassium 4.4 mmol/L (3.6-5.2) 05/30/18 08:20 Urine Color Yellow (YELLOW) 05/30/18 11:30 Urine Appearance Clear (CLEAR) 05/30/18 11:30 Urine pH 6.0 (4.7-8.0) 05/30/18 11:30 Ur Specific Crystal >= 1.030 (1.005-1.035) 05/30/18 11:30 Urine Protein Negative mg/dL (<30 mg/dL) 05/30/18 11:30 Urine Glucose (UA) 100 mg/dL (NEGATIVE) H 05/30/18 11:30 Urine Ketones Negative mg/dL (NEGATIVE) 05/30/18 11:30 Urine Blood Negative (NEGATIVE) 05/30/18 11:30 Urine Nitrate Negative (NEGATIVE) 05/30/18 11:30 Urine Bilirubin Negative (NEGATIVE) 05/30/18 11:30 Urine Urobilinogen 0.2 E.U./dL (<1 E.U./dL) 05/30/18 11:30 Ur Leukocyte Esterase Negative Devon/uL (NEGATIVE) 05/30/18 11:30 Urine Opiates Screen Positive (NEGATIVE) H 05/30/18 11:30 Urine Methadone Screen Negative (NEGATIVE) 05/30/18 11:30 Ur Barbiturates Screen Negative (NEGATIVE) 05/30/18 11:30 Ur Phencyclidine Scrn Negative (NEGATIVE) 05/30/18 11:30 Ur Amphetamines Screen Negative (NEGATIVE) 05/30/18 11:30 U Benzodiazepines Scrn Negative (NEGATIVE) 05/30/18 11:30 U Oth Cocaine Metabols Negative (NEGATIVE) 05/30/18 11:30 U Cannabinoids Screen Negative (NEGATIVE) 05/30/18 11:30 Hepatitis A IgM Ab Negative (NEGATIVE) 05/29/18 23:35 Hep Bs Antigen Negative (NEGATIVE) 05/29/18 23:35 Hep B Core IgM Ab Negative (NEGATIVE) 05/29/18 23:35 Hepatitis C Antibody Negative (NEGATIVE) 05/29/18 23:35 HIV-1 Ab Rapid Screen Non reactive (NON REAC) 05/29/18 23:35 Influenza Typ A,B (EIA) Negative for flu a/b (NEGATIVE) 05/30/18 00:07 Attending/Attestation - Attestation I have personally seen and examined this patient.: Yes I have fully participated in the care of the patient.: Yes I have reviewed all pertinent clinical information, including history, physical exam and plan: Yes Notes (Text): 06/03/18 13:21 37 year old male with past medical history of asthma and recent bronchitis prescribed antibiotics with failed outpatient treatment who presented with complaint of fever, cough and shortness of breath. He was found to have multifocal pneumonia on CT chest and started on iv antibiotics. He was also on iv steroids for asthma exacerbation. Symptoms began to improve and his steroids were tapered. Initial ABG showed respiratory alkalosis which also improved. He was counselled on smoking cessation. He was on colace and miralax for constipation. Overall his symptoms improved. He is discharged home to follow up with his pmd. Continue with po antibiotics and steroids. Counselled on smoking cessation. Kolby Temple MD Hospitalist.
== END 2018-06-03 13:38 | disposition home or self-care (01) | DRG 194 ==
LOC: ED 22:07 → ERH 05-30 01:33 → 2RNO 05-30 05:06 → OBSVTOIN 05-31 10:56 → 3RSO 06-01 15:13
PROVIDERS: ADMIT Internal Medicine; ATTEND Internal Medicine
PROC: 3E0F7GC Introduction of Other Therapeutic Substance into Respiratory Tract, Via Natural or Artificial Opening (ICD-10-PCS; principal; 2018-05-30)
DX: J18.0 Bronchopneumonia, unspecified organism (principal); J45.901 Unspecified asthma with (acute) exacerbation; E87.3 Alkalosis; J20.9 Acute bronchitis, unspecified; R09.02 Hypoxemia; F17.210 Nicotine dependence, cigarettes, uncomplicated; K59.00 Constipation, unspecified; Z82.49 Family history of ischemic heart disease and other diseases of the circulatory system; Z83.3 Family history of diabetes mellitus

== ENCOUNTER 2018-07-19 08:01 | Outpatient (CLI) | payer OTHER | END 2018-07-19 08:02 | disposition home or self-care (01) | LOC: LAB 08:01 ==